=== PATIENT | male | born 1955 | race Caucasian/White ===

== ENCOUNTER → 2017-03-05 | Outpatient (CLI) | payer OTHER ==
[~2017-03-05] MED LIST: ALEVE; IBUPROFEN
== END | disposition home or self-care (01) ==
LOC: C.LABSPEC 15:37
PROVIDERS: ATTEND Internal Medicine
DX: R30.9 Painful micturition, unspecified (principal)

== ENCOUNTER → 2017-03-07 | Outpatient (CLI) | payer OTHER | END | disposition home or self-care (01) | LOC: C.LAB1850 12:37 | PROVIDERS: ATTEND Internal Medicine | DX: R30.9 Painful micturition, unspecified (principal); R35.0 Frequency of micturition ==

== ENCOUNTER → 2017-04-10 | Outpatient (CLI) | payer OTHER ==
[2017-04-10 09:42] LABS: HEMATOCRIT 42.1 % (42-52); MEAN CELL VOLUME 96.3 fL (80-100); MEAN CORPUSCULAR HEMOGLOBIN 32.7 pg (25-34); MEAN PLATELET VOLUME 9.9 fL (7.4-10.4); PLATELET COUNT 247 K/uL (130-400); RED BLOOD COUNT 4.37 M/uL (4.7-6.1); WHITE BLOOD COUNT 5.35 K/uL (4.8-10.8)
[2017-04-10 09:57] LABS: ALT/SGPT 45 U/L (12-78); BLOOD UREA NITROGEN 19 mg/dl (7-18); BUN/CREATININE RATIO 19.9 (10-20); CARBON DIOXIDE 24 mmol/L (21-32); CHLORIDE 113 mmol/L (98-107); CHOLESTEROL 240 mg/dl (0-200); CREATININE 0.97 mg/dl (0.60-1.40); GLUCOSE 96 mg/dl (70-99); POTASSIUM 3.9 mmol/L (3.5-5.1); SODIUM 146 mmol/L (136-145); TRIGLYCERIDES 143 mg/dl (0-150); VERY LOW DENSITY LIPOPROT CALC 29 mg/dl
[2017-04-10 09:59] LABS: CALCIUM 8.4 mg/dl (8.5-10.1)
[2017-04-10 10:01] LABS: ALB/GLOB RATIO 1.2 (0.9-2); ALKALINE PHOSPHATASE 57 U/L (45-117); AST/SGOT 23 U/L (15-37); CHOLESTEROL/HDL RATIO 6.9; HDL CHOLESTEROL 35 mg/dl; LDL CHOLESTEROL CALCULATED 176 mg/dl
== END | disposition home or self-care (01) ==
LOC: C.LAB1850 07:12
PROVIDERS: ATTEND Internal Medicine
DX: Z00.00 Encounter for general adult medical examination without abnormal findings (principal)

== ENCOUNTER → 2018-02-26 | Outpatient (CLI) | payer OTHER ==
[2018-02-26 09:36] LABS: HEMATOCRIT 45.9 % (42-52); MEAN CELL VOLUME 94.6 fL (80-100); MEAN CORPUSCULAR HGB CONC 34.9 g/dl (32-36); MEAN PLATELET VOLUME 9.6 fL (7.4-10.4); PLATELET COUNT 264 K/uL (130-400); RED CELL DISTRIBUTION WIDTH CV 13.7 % (11.5-14.5); WHITE BLOOD COUNT 5.02 K/uL (4.8-10.8)
[2018-02-26 10:09] LABS: ALBUMIN 4.1 gm/dl (3.4-5.0); ALT/SGPT 42 U/L (12-78); AST/SGOT 26 U/L (15-37); BLOOD UREA NITROGEN 14 mg/dl (7-18); CALCIUM 8.8 mg/dl (8.5-10.1); CARBON DIOXIDE 29 mmol/L (21-32); CHOLESTEROL 246 mg/dl (0-200); GLUCOSE 83 mg/dl (70-99); SODIUM 139 mmol/L (136-145)
[2018-02-26 10:20] LABS: ALKALINE PHOSPHATASE 64 U/L (45-117); LDL CHOLESTEROL CALCULATED 176 mg/dl; TOTAL PROTEIN 7.2 gm/dl (6.4-8.2)
== END | disposition home or self-care (01) ==
LOC: C.LAB1850 07:07
PROVIDERS: ATTEND Internal Medicine
DX: Z00.00 Encounter for general adult medical examination without abnormal findings (principal); R53.83 Other fatigue; M25.50 Pain in unspecified joint

== ENCOUNTER 2023-08-13 21:47 | Inpatient (IN) ==
[2023-08-13 22:54] LABS: Basophils # (auto) 0.03 K/uL (0.00-0.20); Basophils % (auto) 0.3 %; Eosinophils # (auto) 0.16 K/uL (0.00-0.50); Eosinophils % (auto) 1.7 %; Hematocrit (blood only) 37.6 % (42.0-52.0); Immature Granulocytes # (auto) 0.08 K/uL (0.01-0.20); Immature Granulocytes % (auto) 0.8 %; Lymphocytes # (auto) 2.06 K/uL (1.20-3.40); Lymphocytes % (auto) 21.7 %; Mean Corpuscular Hemoglobin 31.7 pg (25.0-34.0); Mean Corpuscular Hgb Conc 37.2 g/dL (32.0-36.0); Mean Corpuscular Volume 85.3 fL (80.0-100.0); Mean Platelet Volume 8.6 fL (9.4-12.4); Monocytes # (auto) 1.07 K/uL (0.11-0.59); Monocytes % (auto) 11.3 %; Neutrophils # (auto) 6.08 K/uL (1.40-6.50); Neutrophils % (auto) 64.2 %; Platelet Count 421 K/uL (130-400); RDW Coefficient of Variation 11.5 % (11.5-14.5); RDW Standard Deviation 35.6 fL (36.4-46.3); Red Blood Count 4.41 M/uL (4.70-6.10); White Blood Count 9.48 K/ul (4.8-10.8)
[2023-08-13 23:05] LABS: Appearance Urine Turbid (Clear); Bilirubin Urine 1+ (Negative); Blood Urine 3+ (Negative); Color Urine Red; Glucose Urine UA Negative (Negative); Ketones Urine Trace (Negative); Leukocyte Esterase Urine 3+ (Negative); Nitrite Urine Negative (Negative); Protein Urine 3+ (Negative); Specific Gravity Urine 1.015 (1.000-1.030); Urobilinogen Urine Negative (Negative); pH Urine 8.5 (4.5-7.5)
[2023-08-13 23:48] LABS: Albumin Globulin Ratio 0.9 (0.9-2); Albumin Level 3.6 gm/dl (3.4-5.0); BUN Creatinine Ratio 11.7 (10-20); Bilirubin,Total 0.5 mg/dl (0.2-1.0); Calcium 8.5 mg/dl (8.6-10.3); Creatinine Clr Calc Pharmacy 98.9 ml/min; Est GFR (African American) 108.1 ml/min; Est GFR (Non-African American) 93.2 ml/min; Globulin 3.9 gm/dl (2.5-4.0); Total Protein 7.5 gm/dl (6.0-8.3)
[2023-08-14 00:10] LABS: RBC Urine >30 /hpf (0-4); WBC Urine >30 /hpf (0-5)
[2023-08-14 00:11] LABS: Bacteria Urine 4+ (Negative)
[2023-08-14] MEDS ORDERED: MoRPHine SULFATE 4 MG/ML 1 ML CARP\\VIAL IV STA (00:14)
[2023-08-14] MEDS ORDERED: ONDANSETRON INJ 2 MG/ML 2 ML VIAL IV STA (00:14)
--- NOTE | 2023-08-14 00:18 | Emergency Department Note ---
Impression & Plan Acute hyponatremia ADMIT ED Provider Note HPI: History obtained from patient. The patient is a 68-year-old gentleman who presents emergency department with a chief complaint of lower abdominal discomfort, vomiting, and hematuria. Patient states his symptoms have been worsening over about the past 2 weeks. Patient states he was on a course of Bactrim without any improvement in his lower abdominal discomfort and hematuria. On arrival here to the ED the patient is hemodynamically stable, he is in no acute distress on my initial assessment but states he does have some lower abdominal discomfort. Patient states he has been able to void but he does have a diminished stream. ROS: - Per HPI Differential Diagnosis: Kidney stone, BPH, urinary tract infection, diverticulitis, acute appendicitis, acute colitis, acute cholecystitis, small bowel obstruction, amongst other potential pathologies. *Outpatient medications and allergy history reviewed. 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 Lab work shows no leukocytosis, hemoglobin is normal, platelet count is slightly high at 421, CMP shows a critical low sodium at 112, patient remains asymptomatic from this standpoint, he is mentating clearly, no seizure-like activity has been reported recently. Chloride is also slightly low at 81, otherwise no critical findings are noted. Urinalysis shows 3+ blood, 3+ leukocyte Estrace, there is significant hematuria and pyuria. We will send for culture. Patient was treated prophylactically with Zosyn. In regards to the patient's hyponatremia, he is not symptomatic from the standpoint, will defer to the hospitalist service in regards to potential fluid restriction and further management, and will avoid hypertonic saline at this time given the patient's lack of any neurologic symptoms. CT imaging of the abdomen pelvis shows evidence of diverticulitis flare with fistulous tract between the bowel and the bladder. There is an air-fluid level within the bladder. On my reassessment patient states he is feeling much better following IV morphine and IV Zofran, he was treated prophylactically with IV Zosyn for the findings on urine and CT imaging. I discussed the patient's presentation with on-call hospitalist, Dr. Allen, and the patient was placed for admission in stable condition. Urology and general surgery consultations w ere placed for the patient to be evaluated on a routine basis for the findings on CT imaging. Patient was informed of the all the above, he is in agreement for admission and the patient was placed for admission in stable condition. Consultants/Discussions held with other healthcare providers: -Hospitalist, Dr. Allen -Routine consultations placed for general surgery service and urology service Disposition discussion held by myself with: -Patient Diagnosis: 1. Diverticulitis flare, acute 2. Colovesicular fistula, acute 3. Urinary tract infection, acute 4. Hyponatremia, acute Disposition: Admission Garrick Velasquez DO Emergency Medicine Past Med/Surg History Medical History (Updated 08/14/23 @ 02:54 by Garrick Velasquez DO) Arthralgia of multiple sites BPH (benign prostatic hyperplasia) Symptoms primarily nocturia, weak stream. Treated with tamsulosin Elevated prostate specific antigen (PSA) Erectile dysfunction Managed with sildenafil Heart murmur, systolic Recurrent UTI Surgical History History of back surgery Hx of tonsillectomy Family History Mother Diabetes Alzheimer disease Parkinson disease Sister Myocardial infarction Grandmother Cardiac disorder Cervical cancer Denies family history of Colon cancer Ovarian cancer Prostate cancer Breast cancer Social History Smoking Status: Never smoker Hx Alcohol Use: Yes Hx Substance Use: No Preferred Language: Greek Visual Impairment: No Limitations Hearing Ability: Normal Beliefs That Will Affect Care: None marital status: Current Living Situation: Spouse current occupational status: retired Feels Safe at Home: Yes Childhood Exposure to Second-Hand Smoke: Yes Dental Care, Regularly: Yes Physical Activity Frequency: 1-2 Times per Week Seatbelt Use: always Sunscreen Use: No Allergies Allergies Allergy/AdvReac Type Severity Reaction Status Date / Time No Known Drug Allergies Allergy Unknown Verified 08/14/23 01:47 Home Meds Home Medications Medication Instructions Recorded Confirmed atorvastatin 40 mg tablet 80 mg PO HS 08/14/23 08/14/23 silodosin 8 mg capsule (Rapaflo) 8 mg PO QPM 08/14/23 08/14/23 Previous Rx's Medication Instructions Recorded sildenafil (pulm.hypertension) 20 20 mg PO ONCE PRN sexual activity 05/15/23 mg tablet #30 tabs sulfamethoxazole 800 1 tab PO BID 3 days #6 tabs 08/12/23 mg-trimethoprim 160 mg tablet (Bactrim DS) Results & Data (ED) Vital Signs Vital Signs - 24 hr 08/13/23 21:55 Temperature 36.4 C L Temperature Source Temporal Artery Scan Pulse Rate 100 H Pulse Rhythm Regular Pulse Strength Normal Respiratory Rate 20 Respiratory Effort / Characteristics Non-Labored Spontaneous Respiratory Depth Normal Pulse Oximetry 94 Oxygen Delivery Method Room Air Sepsis Recent Fever Within 48 Hours No Sepsis New/Unexplained Change in Mental Status N/A Sepsis Action Taken by Nursing No Action Required Laboratory Data 08/13/23 22:35 08/13/23 22:35 Lab Results 08/13/23 08/13/23 08/13/23 Range/Units 22:35 22:35 22:35 WBC 9.48 (4.8-10.8) K/ul RBC 4.41 L (4.70-6.10) M/uL Hgb 14.0 (14.0-18.0) g/dl Hct 37.6 L (42.0-52.0) % MCV 85.3 (80.0-100.0) fL MCH 31.7 (25.0-34.0) pg MCHC 37.2 H (32.0-36.0) g/dL RDW Std Deviation 35.6 L (36.4-46.3) fL RDW Coeff of Roopa 11.5 (11.5-14.5) % Plt Count 421 H (130-400) K/uL MPV 8.6 L (9.4-12.4) fL Immature Gran % (Auto) 0.8 % Neut % (Auto) 64.2 % Lymph % (Auto) 21.7 % Blair % (Auto) 11.3 % Eos % (Auto) 1.7 % Baso % (Auto) 0.3 % Neut # (Auto) 6.08 (1.40-6.50) K/uL Lymph # (Auto) 2.06 (1.20-3.40) K/uL Blair # (Auto) 1.07 H (0.11-0.59) K/uL Eos # (Auto) 0.16 (0.00-0.50) K/uL Baso # (Auto) 0.03 (0.00-0.20) K/uL Immature Gran # (Auto) 0.08 (0.01-0.20) K/uL Sodium 112 L* (136-145) mmol/L Potassium 4.0 (3.5-5.1) mmol/L Chloride 82 L (98-107) mmol/L Carbon Dioxide 21 (21-32) mmol/L Anion Gap 9 (3-11) BUN 9 (6-23) mg/dl Creatinine 0.77 (0.6-1.4) mg/dl Est Cr Clr Drug Dosing 98.9 ml/min Est GFR ( Amer) 108.1 ml/min Est GFR (Non-Af Amer) 93.2 ml/min BUN/Creatinine Ratio 11.7 (10-20) Glucose 110 H (70-99(Fasting)) mg/dl Osmolality 234 L* (280-300) mOsm/kg Calcium 8.5 L (8.6-10.3) mg/dl Total Bilirubin 0.5 (0.2-1.0) mg/dl AST 40 H (13-39) U/L ALT 32 (7-52) U/L Alkaline Phosphatase 92 (34-104) U/L Total Protein 7.5 (6.0-8.3) gm/dl Albumin 3.6 (3.4-5.0) gm/dl Globulin 3.9 (2.5-4.0) gm/dl Albumin/Globulin Ratio 0.9 (0.9-2) Urine Color Urine Appearance (Clear) Urine pH (4.5-7.5) Ur Specific [place] (1.000-1.030) Urine Protein (Negative) Urine Glucose (UA) (Negative) Urine Ketones (Negative) Urine Blood (Negative) Urine Nitrite (Negative) Urine Bilirubin (Negative) Urine Urobilinogen (Negative) Ur Leukocyte Esterase (Negative) Urine RBC (0-4) /hpf Urine WBC (0-5) /hpf Ur Epithelial Cells (0-5) /lpf Urine Bacteria (Negative) 08/13/23 08/14/23 Range/Units 22:40 00:51 WBC (4.8-10.8) K/ul RBC (4.70-6.10) M/uL Hgb (14.0-18.0) g/dl Hct (42.0-52.0) % MCV (80.0-100.0) fL MCH (25.0-34.0) pg MCHC (32.0-36.0) g/dL RDW Std Deviation (36.4-46.3) fL RDW Coeff of Roopa (11.5-14.5) % Plt Count (130-400) K/uL MPV (9.4-12.4) fL Immature Gran % (Auto) % Neut % (Auto) % Lymph % (Auto) % Blair % (Auto) % Eos % (Auto) % Baso % (Auto) % Neut # (Auto) (1.40-6.50) K/uL Lymph # (Auto) (1.20-3.40) K/uL Blair # (Auto) (0.11-0.59) K/uL Eos # (Auto) (0.00-0.50) K/uL Baso # (Auto) (0.00-0.20) K/uL Immature Gran # (Auto) (0.01-0.20) K/uL Sodium 111 L* (136-145) mmol/L Potassium 3.9 (3.5-5.1) mmol/L Chloride 83 L (98-107) mmol/L Carbon Dioxide 22 (21-32) mmol/L Anion Gap 6 (3-11) BUN 10 (6-23) mg/dl Creatinine 0.82 (0.6-1.4) mg/dl Est Cr Clr Drug Dosing 92.9 ml/min Est GFR ( Amer) 105.3 ml/min Est GFR (Non-Af Amer) 90.9 ml/min BUN/Creatinine Ratio 12.2 (10-20) Glucose 110 H (70-99(Fasting)) mg/dl Osmolality (280-300) mOsm/kg Calcium 8.1 L (8.6-10.3) mg/dl Total Bilirubin (0.2-1.0) mg/dl AST (13-39) U/L ALT (7-52) U/L Alkaline Phosphatase (34-104) U/L Total Protein (6.0-8.3) gm/dl Albumin (3.4-5.0) gm/dl Globulin (2.5-4.0) gm/dl Albumin/Globulin Ratio (0.9-2) Urine Color Red Urine Appearance Turbid A (Clear) Urine pH 8.5 H (4.5-7.5) Ur Specific [place] 1.015 (1.000-1.030) Urine Protein 3+ H (Negative) Urine Glucose (UA) Negative (Negative) Urine Ketones Trace H (Negative) Urine Blood 3+ H (Negative) Urine Nitrite Negative (Negative) Urine Bilirubin 1+ H (Negative) Urine Urobilinogen Negative (Negative) Ur Leukocyte Esterase 3+ H (Negative) Urine RBC >30 H (0-4) /hpf Urine WBC >30 H (0-5) /hpf Ur Epithelial Cells 5-10 H (0-5) /lpf Urine Bacteria 4+ H (Negative) Administered Medications Discontinued Medications Morphine Sulfate (Morphine Sulfate 4 Mg/Ml 1 Ml Carp\Vial) 4 mg IV NOW STA Stop: 08/14/23 00:15 Last Admin: 08/14/23 00:50 Dose: 4 mg Documented By: LASHANDA Ondansetron HCl (Ondansetron Inj 2 Mg/Ml 2 Ml Vial) 4 mg IV NOW STA Stop: 08/14/23 00:15 Last Admin: 08/14/23 00:49 Dose: 4 mg Documented By: LASHANDA Imaging Data Radiologist's Impression: Abdomen/Pelvis CT 08/14/23 00:14 Exam(s): CT ABDOMEN + PELVIS Without Contrast EXAM: CT Abdomen and Pelvis Without Intravenous Contrast CLINICAL HISTORY: Reason for exam: lower abd pain. TECHNIQUE: Axial computed tomography images of the abdomen and pelvis without intravenous contrast. Automated exposure control was utilized for the study. A dose lowering technique was utilized adhering to the principles of ALARA. COMPARISON: No relevant prior studies available. FINDINGS: Lung bases: Unremarkable. No mass. No consolidation. ABDOMEN: Liver: Unremarkable. Gallbladder and bile ducts: Unremarkable. No calcified stones. No ductal dilation. Pancreas: Unremarkable. No ductal dilation. Spleen: Unremarkable. No splenomegaly. Adrenals: Unremarkable. No mass. Kidneys and ureters: Moderate left hydroureteronephrosis extrinsic compression from the above-mentioned infectious colitis. Stomach and bowel: See above. PELVIS: Appendix: No findings to suggest acute appendicitis. Bladder: Inflammatory changes and wall thickening involving a short segment of sigmoid colon left hemiabdomen. This is inseparable from the adjacent urinary bladder wall. No pericolonic fluid collections present on this exam. No free air. Moderate left-sided hydronephrosis. Urinary bladder is markedly distended. There is also air seen within the urinary bladder. No stones. Reproductive: Unremarkable as visualized. ABDOMEN and PELVIS: Intraperitoneal space: See above. Bones/joints: No acute fracture. No dislocation. Soft tissues: Unremarkable. Vasculature: Unremarkable. No abdominal aortic aneurysm. Lymph nodes: Unremarkable. No enlarged lymph nodes. IMPRESSION: Diverticulitis involving the sigmoid colon. There is likely a fistulous connection between the inflamed loop of sigmoid colon in the left lower quadrant and the urinary bladder which contains air. Electronically signed by: Carson Osullivan MD 08/14/23 01:25 AM Discharge Plan Visit Data Chief Complaint: Hematuria Stated Complaint: HEMATURIA, PELVIC AND BACK PAIN ED Provider: Garrick Velasquez Discharge Problem: Acute hyponatremia Forms Stand Alone Forms: [facility] [employer] Prescriptions Prescriptions: No Action sildenafil (pulm.hypertension) 20 mg tablet 20 mg PO ONCE MDD 100 mg PRN (Reason: sexual activity) Qty: 30 5RF Rx Instructions: Take 1-5 tablets prn prior to sexual activity. Do not exceed 100mg in 24 hours. sulfamethoxazole-trimethoprim [Bactrim DS] 800-160 mg tablet 1 tab PO BID 3 Days Qty: 6 0RF atorvastatin 40 mg tablet 80 mg PO HS silodosin [Rapaflo] 8 mg capsule 8 mg PO QPM Rx Instructions: must administer with a meal/food Referrals Referrals: Rich Rg MD [Primary Care Provider] -
--- NOTE | 2023-08-14 01:25 | CT Scan Report ---
Exam(s): CT ABDOMEN + PELVIS Without Contrast EXAM: CT Abdomen and Pelvis Without Intravenous Contrast CLINICAL HISTORY: Reason for exam: lower abd pain. TECHNIQUE: Axial computed tomography images of the abdomen and pelvis without intravenous contrast. Automated exposure control was utilized for the study. A dose lowering technique was utilized adhering to the principles of ALARA. COMPARISON: No relevant prior studies available. FINDINGS: Lung bases: Unremarkable. No mass. No consolidation. ABDOMEN: Liver: Unremarkable. Gallbladder and bile ducts: Unremarkable. No calcified stones. No ductal dilation. Pancreas: Unremarkable. No ductal dilation. Spleen: Unremarkable. No splenomegaly. Adrenals: Unremarkable. No mass. Kidneys and ureters: Moderate left hydroureteronephrosis extrinsic compression from the above-mentioned infectious colitis. Stomach and bowel: See above. PELVIS: Appendix: No findings to suggest acute appendicitis. Bladder: Inflammatory changes and wall thickening involving a short segment of sigmoid colon left hemiabdomen. This is inseparable from the adjacent urinary bladder wall. No pericolonic fluid collections present on this exam. No free air. Moderate left-sided hydronephrosis. Urinary bladder is markedly distended. There is also air seen within the urinary bladder. No stones. Reproductive: Unremarkable as visualized. ABDOMEN and PELVIS: Intraperitoneal space: See above. Bones/joints: No acute fracture. No dislocation. Soft tissues: Unremarkable. Vasculature: Unremarkable. No abdominal aortic aneurysm. Lymph nodes: Unremarkable. No enlarged lymph nodes. IMPRESSION: Diverticulitis involving the sigmoid colon. There is likely a fistulous connection between the inflamed loop of sigmoid colon in the left lower quadrant and the urinary bladder which contains air. Electronically signed by: Carson Osullivan MD 08/14/23 01:25 AM
[2023-08-14] MEDS ORDERED: PIPERACILLIN/TAZOBACTAM 4.5 GM/100 ML BAG IV ONE (01:33)
[2023-08-14] MEDS ORDERED: cefTRIAXone SODIUM 2,000 MG/50 ML BAG IV STA (01:33)
[2023-08-14 01:43] LABS: BUN Creatinine Ratio 12.2 (10-20); Calcium 8.1 mg/dl (8.6-10.3); Creatinine Clr Calc Pharmacy 92.9 ml/min; Est GFR (African American) 105.3 ml/min; Est GFR (Non-African American) 90.9 ml/min; Potassium 3.9 mmol/L (3.5-5.1)
--- NOTE | 2023-08-14 02:22 | History & Physical Report ---
Date of Service August 14, 2023 Assessment & Plan (1) Acute hyponatremia: Plan: Severe hyponatremia with Om=912. No history of prior. Last Na level on record from 05/21/23, normal at 139. Patient appears to be euvolemic on exam. Asymptomatic. Possibly secondary to Bactrim use - renal salt wasting and SIADH can result from use of Bactrim - often seen several days into antibiotic course. -Admit to PCU -Check serum and urine osm -Check urine Na -Check TSH and random Cortisol -Monitor BMP q 4 hours -Fluid restriction 1200mL/daily -Monitor UOP -Straight cath as needed (2) Diverticulitis: Plan: CT findings as above. Concern for acute diverticulitis, possible enterovesicular fistula. Abdomen is tender, soft and non-distended. 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 Patient with recurrent UTIs -Follow culture -Continue Zosyn -Urology consultation appreciated History of Present Illness Chief Complaint: Pelvic pain, hyponatremia Primary Care Provider: Rich Rg MD Mr. Polanco is a pleasant 68yo male with history of BPH and HLP presenting with pelvic discomfort. Patient reports that on 08/05/23 he developed symptoms concerning for a UTI - dysuria, increased frequency and urgency as well as pelvic discomfort. He notified his Urologist and a urine study was collected. He was started on TMP-SMX 800mg/160mg po BID on 08/09/23 for a 7 day course. He has been taking this medication as prescribed - last dose was 08/13/23 AM. He also reports that he has been trying to increase his water intake - drinks 6-8 glasses of water daily. He has had occasional chills as well as ongoing pelvic/mid-abdominal pain, episodes of nausea with vomiting and some diarrhea last night. He denies fever. Has had decreased urine output which is dark in color. He also reports that it is more difficult than usual to start his urinary stream. No additional complaints at this time. Specifically denies seizure, imbalance, confusion, visual changes. No prior history of hyponatremia or diverticulosis/diverticulitis known to the patient. Allergies Allergy/AdvReac Type Severity Reaction Status Date / Time No Known Drug Allergies Allergy Unknown Verified 08/14/23 01:47 Home Medications Medication Instructions Recorded Confirmed Type sildenafil (pulm.hypertension) 20 20 mg PO ONCE PRN sexual activity 05/15/23 08/14/23 Rx mg tablet #30 tabs sulfamethoxazole 800 1 tab PO BID 3 days #6 tabs 08/12/23 08/14/23 Rx mg-trimethoprim 160 mg tablet (Bactrim DS) atorvastatin 40 mg tablet 80 mg PO HS 08/14/23 08/14/23 History silodosin 8 mg capsule (Rapaflo) 8 mg PO QPM 08/14/23 08/14/23 History Past Med/Surg History Medical History (Updated 08/14/23 @ 04:55 by Lexi Allen DO) Arthralgia of multiple sites BPH (benign prostatic hyperplasia) Symptoms primarily nocturia, weak stream. Treated with tamsulosin Elevated prostate specific antigen (PSA) Erectile dysfunction Managed with sildenafil Heart murmur, systolic Recurrent UTI Surgical History History of back surgery Hx of tonsillectomy Family History Mother Diabetes Alzheimer disease Parkinson disease Sister Myocardial infarction Grandmother Cardiac disorder Cervical cancer Denies family history of Colon cancer Ovarian cancer Prostate cancer Breast cancer Social History Smoking Status: Never smoker Hx Alcohol Use: Yes Hx Substance Use: No Preferred Language: Persian Visual Impairment: No Limitations Hearing Ability: Normal Beliefs That Will Affect Care: None marital status: Current Living Situation: Spouse current occupational status: retired Feels Safe at Home: Yes Childhood Exposure to Second-Hand Smoke: Yes Dental Care, Regularly: Yes Physical Activity Frequency: 1-2 Times per Week Seatbelt Use: always Sunscreen Use: No Review of Systems Review of Systems: All systems reviewed & are unremarkable except as noted in HPI & below Physical Exam Physical Exam: General: patient resting comfortably, NAD, non-toxic in appearance, AA&O x 4 Skin: warm, dry, intact, no rashes or lesions HEENT: NC/AT, PERRL, EOMI, anicteric sclera, conjunctiva without injection, ext ernal ear normal to inspection and nontender, nares patent, moist mucus membranes, dentition intact, no oropharyngeal lesions, neck supple, trachea midline, no LAD, no thyromegaly, no JVD Heart: +S1/S2, regular, no m/r/g Lungs: equal air entry bilaterally, no rales/rhonchi/wheezes Abd: +BS, soft, tender in lower abdomen with no rebound/guarding or peritonitis, no masses/organomegaly/ascites Ext: warm, 2+ pulses in UE/LE bilaterally, no clubbing/cyanosis or edema Neuro: nonfocal, patient AA&O x 4, speech intact, no facial droop, moving all extremities on command with equal strength 5/5 Results & Data Results & Data Vital Signs (Past 12 Hours) Vital Signs Temp Pulse Resp Pulse Ox O2 Del Method 08/13/23 21:55 36.4 C L 100 H 20 94 Room Air Laboratory Results Laboratory Results WBC 9.48 K/ul (4.8-10.8) 08/13/23 22:35 RBC 4.41 M/uL (4.70-6.10) L 08/13/23 22:35 Hgb 14.0 g/dl (14.0-18.0) 08/13/23 22:35 Hct 37.6 % (42.0-52.0) L 08/13/23 22:35 MCV 85.3 fL (80.0-100.0) 08/13/23 22:35 MCH 31.7 pg (25.0-34.0) 08/13/23 22:35 MCHC 37.2 g/dL (32.0-36.0) H 08/13/23 22:35 RDW Std Deviation 35.6 fL (36.4-46.3) L 08/13/23 22:35 RDW Coeff of Roopa 11.5 % (11.5-14.5) 08/13/23 22:35 Plt Count 421 K/uL (130-400) H 08/13/23 22:35 MPV 8.6 fL (9.4-12.4) L 08/13/23 22:35 Immature Gran % (Auto) 0.8 % 08/13/23 22:35 Neut % (Auto) 64.2 % 08/13/23 22:35 Lymph % (Auto) 21.7 % 08/13/23 22:35 [place] % (Auto) 11.3 % 08/13/23 22:35 Eos % (Auto) 1.7 % 08/13/23 22:35 Baso % (Auto) 0.3 % 08/13/23 22:35 Neut # (Auto) 6.08 K/uL (1.40-6.50) 08/13/23 22:35 Lymph # (Auto) 2.06 K/uL (1.20-3.40) 08/13/23 22:35 [place] # (Auto) 1.07 K/uL (0.11-0.59) H 08/13/23 22:35 Eos # (Auto) 0.16 K/uL (0.00-0.50) 08/13/23 22:35 Baso # (Auto) 0.03 K/uL (0.00-0.20) 08/13/23 22:35 Immature Gran # (Auto) 0.08 K/uL (0.01-0.20) 08/13/23 22:35 Sodium 111 mmol/L (136-145) L* 08/14/23 00:51 Potassium 3.9 mmol/L (3.5-5.1) 08/14/23 00:51 Chloride 83 mmol/L (98-107) L 08/14/23 00:51 Carbon Dioxide 22 mmol/L (21-32) 08/14/23 00:51 Anion Gap 6 (3-11) 08/14/23 00:51 BUN 10 mg/dl (6-23) 08/14/23 00:51 Creatinine 0.82 mg/dl (0.6-1.4) 08/14/23 00:51 Est Cr Clr Drug Dosing 92.9 ml/min 08/14/23 00:51 Est GFR ( Amer) 105.3 ml/min 08/14/23 00:51 Est GFR (Non-Af Amer) 90.9 ml/min 08/14/23 00:51 BUN/Creatinine Ratio 12.2 (10-20) 08/14/23 00:51 Glucose 110 mg/dl (70-99(Fasting)) H 08/14/23 00:51 Osmolality 234 mOsm/kg (280-300) L* 08/13/23 22:35 Calcium 8.1 mg/dl (8.6-10.3) L 08/14/23 00:51 Total Bilirubin 0.5 mg/dl (0.2-1.0) 08/13/23 22:35 AST 40 U/L (13-39) H 08/13/23 22:35 ALT 32 U/L (7-52) 08/13/23 22:35 Alkaline Phosphatase 92 U/L (34-104) 08/13/23 22:35 Total Protein 7.5 gm/dl (6.0-8.3) 08/13/23 22:35 Albumin 3.6 gm/dl (3.4-5.0) 08/13/23 22:35 Globulin 3.9 gm/dl (2.5-4.0) 08/13/23 22:35 Albumin/Globulin Ratio 0.9 (0.9-2) 08/13/23 22:35 TSH 0.896 uIu/ml (0.300-4.500) 08/14/23 00:51 Random Cortisol 10.80 mcg/dl 08/14/23 02:12 Urine Color Red 08/13/23 22:40 Urine Appearance Turbid (Clear) A 08/13/23 22:40 Urine pH 8.5 (4.5-7.5) H 08/13/23 22:40 Ur Specific [place] 1.015 (1.000-1.030) 08/13/23 22:40 Urine Protein 3+ (Negative) H 08/13/23 22:40 Urine Glucose (UA) Negative (Negative) 08/13/23 22:40 Urine Ketones Trace (Negative) H 08/13/23 22:40 Urine Blood 3+ (Negative) H 08/13/23 22:40 Urine Nitrite Negative (Negative) 08/13/23 22:40 Urine Bilirubin 1+ (Negative) H 08/13/23 22:40 Urine Urobilinogen Negative (Negative) 08/13/23 22:40 Ur Leukocyte Esterase 3+ (Negative) H 08/13/23 22:40 Urine RBC >30 /hpf (0-4) H 08/13/23 22:40 Urine WBC >30 /hpf (0-5) H 08/13/23 22:40 Ur Epithelial Cells 5-10 /lpf (0-5) H 08/13/23 22:40 Urine Bacteria 4+ (Negative) H 08/13/23 22:40 Impressions Abdomen/Pelvis CT 08/14/23 00:14 Exam(s): CT ABDOMEN + PELVIS Without Contrast EXAM: CT Abdomen and Pelvis Without Intravenous Contrast CLINICAL HISTORY: Reason for exam: lower abd pain. TECHNIQUE: Axial computed tomography images of the abdomen and pelvis without intravenous contrast. Automated exposure control was utilized for the study. A dose lowering technique was utilized adhering to the principles of ALARA. COMPARISON: No relevant prior studies available. FINDINGS: Lung bases: Unremarkable. No mass. No consolidation. ABDOMEN: Liver: Unremarkable. Gallbladder and bile ducts: Unremarkable. No calcified stones. No ductal dilation. Pancreas: Unremarkable. No ductal dilation. Spleen: Unremarkable. No splenomegaly. Adrenals: Unremarkable. No mass. Kidneys and ureters: Moderate left hydroureteronephrosis extrinsic compression from the above-mentioned infectious colitis. Stomach and bowel: See above. PELVIS: Appendix: No findings to suggest acute appendicitis. Bladder: Inflammatory changes and wall thickening involving a short segment of sigmoid colon left hemiabdomen. This is inseparable from the adjacent urinary bladder wall. No pericolonic fluid collections present on this exam. No free air. Moderate left-sided hydronephrosis. Urinary bladder is markedly distended. There is also air seen within the urinary bladder. No stones. Reproductive: Unremarkable as visualized. ABDOMEN and PELVIS: Intraperitoneal space: See above. Bones/joints: No acute fracture. No dislocation. Soft tissues: Unremarkable. Vasculature: Unremarkable. No abdominal aortic aneurysm. Lymph nodes: Unremarkable. No enlarged lymph nodes. IMPRESSION: Diverticulitis involving the sigmoid colon. There is likely a fistulous connection between the inflamed loop of sigmoid colon in the left lower quadrant and the urinary bladder which contains air. Electronically signed by: Carson Osullivan MD 08/14/23 01:25 AM PG Care Time/CCT Total # of Minutes Spent Total Time Spent with Patient: Total time spent is greater than 50% in coordination of care (as documented) at patient's floor/unit and/or counseling patient: Coding Level of Care Code 59473 INT INP/OBS CARE 2/55MIN Diagnoses Acute hyponatremia E87.1 Diverticulitis K57.92 UTI (urinary tract infection) N39.0
[2023-08-14 02:57] LABS: Thyroid Stimulating Hormone 0.896 uIu/ml (0.300-4.500)
[2023-08-14] MEDS ORDERED: ACETAMINOPHEN 325 MG TAB PO PRN (03:58)
[2023-08-14] MEDS: MoRPHine SULFATE 4 MG/ML 1 ML CARP\\VIAL IV PRN ×3 (05:06→23:44)
[2023-08-14 05:34] LABS: BUN Creatinine Ratio 13.3 (10-20); Creatinine Clr Calc Pharmacy 101.5 ml/min; Est GFR (African American) 109.2 ml/min; Est GFR (Non-African American) 94.3 ml/min; Potassium 3.9 mmol/L (3.5-5.1)
[2023-08-14] MEDS: ONDANSETRON INJ 2 MG/ML 2 ML VIAL IV PRN ×3 (08:17→20:10)
--- NOTE | 2023-08-14 08:18 | Hospitalist Progress Note ---
Date of Service August 14, 2023 Assessment & Plan (1) Acute hyponatremia: (2) Diverticulitis: (3) UTI (urinary tract infection): Plan #Acute hyponatremia: - Initial Na 112, fluctuated throughout the day between 111 and 113, - Serum osmolality 234 - Likely secondary to Bactrim, possibly exacerbated by excess water intake - Start 3% hypertonic saline infusion at 22ml/hour to correct sodium - Start desmopressin 1mcg Q6h to prevent excess water diuresis and to regulate rate of sodium increase - Fluid restriction 1200mL - continue serial BMP Q4H and titrate hypertonic saline infusion rate accordingly to avoid overcorrection. #Diverticulitis: - CT significant for sigmoid diverticulitis with possible colovesicular fistula - General surgery consulted, no immediate need for surgical intervention, continue to appreciate recs - Continue IV Zosyn - Morphine as needed for pain - Zofran as needed for nausea #UTI: - CT with possible colovesicular fistula, air noted in bladder - Continue IV Zosyn - Urology consulted, no immediate need for intervention, continue conservative management, continue to appreciate recs VTE ppx: Lovenox Diet: Clear liquids Admission and Anticipated Discharge Date Admission Date: August 14, 2023 Supervising Physician Co-Signing Physician Notes Resident Physician Supervision Note: I independently interviewed and examined the patient and verified the irizarry history and physical, reviewed labs and image studies and agree with resident findings and care plan. Subjective Mr. Polanco is a 68yo male with history of BPH and HLP presenting with pelvic discomfort. Patient evaluated at bedside, appears to be in no apparent distress but states that he has ongoing lower abdominal/suprapubic pain and has dark, "tea-colored" urine. Denies nausea, vomiting. Last bowel movement yesterday was loose, none since but passing gas. Denies fever or chills. Denies air in urine, denies passage of stool via urethra. Review of Systems Review of Systems: All systems reviewed & are unremarkable except as noted in HPI & below Physical Exam Constitutional: WD/WN, vitals as above no acute distress Respiratory: normal respiratory effort, lungs clear to auscultation Cardiovascular: RRR, no murmur, no edema Gastrointestinal (Abdomen): Abdomen tender to palpation in LLQ and RLQ as well as over suprapubic region. Minimal guarding, no rigidity. Bowel sounds intact. Skin: no rashes, warm and dry Psychiatric: A+Ox3, euthymic affect Results & Data Results & Data Vital Signs (Past 12 Hours) Vital Signs Temp Pulse Resp BP BP Pulse Ox O2 Del Method 08/14/23 08:14 18 128/82 96 Room Air 08/14/23 06:58 74 08/14/23 06:30 79 24 113/72 93 08/14/23 06:00 90 08/14/23 04:30 190/131 H 91 08/14/23 04:01 132/88 93 08/14/23 03:00 71 16 147/87 H 97 08/13/23 21:55 36.4 C L 100 H 20 94 Room Air Laboratory Results Abnormal lab results 08/13/23 08/13/23 08/13/23 Range/Units 22:35 22:35 22:35 RBC 4.41 L (4.70-6.10) M/uL Hct 37.6 L (42.0-52.0) % MCHC 37.2 H (32.0-36.0) g/dL RDW Std Deviation 35.6 L (36.4-46.3) fL Plt Count 421 H (130-400) K/uL MPV 8.6 L (9.4-12.4) fL [place] # (Auto) 1.07 H (0.11-0.59) K/uL Sodium 112 L* (136-145) mmol/L Chloride 82 L (98-107) mmol/L Glucose 110 H (70-99(Fasting)) mg/dl Osmolality 234 L* (280-300) mOsm/kg Calcium 8.5 L (8.6-10.3) mg/dl AST 40 H (13-39) U/L Urine Appearance (Clear) Urine pH (4.5-7.5) Urine Protein (Negative) Urine Ketones (Negative) Urine Blood (Negative) Urine Bilirubin (Negative) Ur Leukocyte Esterase (Negative) Urine RBC (0-4) /hpf Urine WBC (0-5) /hpf Ur Epithelial Cells (0-5) /lpf Urine Bacteria (Negative) 08/13/23 08/14/23 08/14/23 Range/Units 22:40 00:51 02:12 RBC (4.70-6.10) M/uL Hct (42.0-52.0) % MCHC (32.0-36.0) g/dL RDW Std Deviation (36.4-46.3) fL Plt Count (130-400) K/uL MPV (9.4-12.4) fL [place] # (Auto) (0.11-0.59) K/uL Sodium 111 L* 112 L* (136-145) mmol/L Chloride 83 L 83 L (98-107) mmol/L Glucose 110 H (70-99(Fasting)) mg/dl Osmolality (280-300) mOsm/kg Calcium 8.1 L 8.0 L (8.6-10.3) mg/dl AST (13-39) U/L Urine Appearance Turbid A (Clear) Urine pH 8.5 H (4.5-7.5) Urine Protein 3+ H (Negative) Urine Ketones Trace H (Negative) Urine Blood 3+ H (Negative) Urine Bilirubin 1+ H (Negative) Ur Leukocyte Esterase 3+ H (Negative) Urine RBC >30 H (0-4) /hpf Urine WBC >30 H (0-5) /hpf Ur Epithelial Cells 5-10 H (0-5) /lpf Urine Bacteria 4+ H (Negative) 08/14/23 08/14/23 08/14/23 Range/Units 07:56 11:42 15:40 RBC (4.70-6.10) M/uL Hct (42.0-52.0) % MCHC (32.0-36.0) g/dL RDW Std Deviation (36.4-46.3) fL Plt Count (130-400) K/uL MPV (9.4-12.4) fL [place] # (Auto) (0.11-0.59) K/uL Sodium 113 L* 111 L* 113 L* (136-145) mmol/L Chloride 84 L 83 L 83 L (98-107) mmol/L Glucose 122 H 115 H (70-99(Fasting)) mg/dl Osmolality (280-300) mOsm/kg Calcium 7.8 L 7.9 L 7.9 L (8.6-10.3) mg/dl AST (13-39) U/L Urine Appearance (Clear) Urine pH (4.5-7.5) Urine Protein (Negative) Urine Ketones (Negative) Urine Blood (Negative) Urine Bilirubin (Negative) Ur Leukocyte Esterase (Negative) Urine RBC (0-4) /hpf Urine WBC (0-5) /hpf Ur Epithelial Cells (0-5) /lpf Urine Bacteria (Negative) Diagnostic Findings Abdomen/Pelvis CT 08/14/23 00:14 Exam(s): CT ABDOMEN + PELVIS Without Contrast EXAM: CT Abdomen and Pelvis Without Intravenous Contrast CLINICAL HISTORY: Reason for exam: lower abd pain. TECHNIQUE: Axial computed tomography images of the abdomen and pelvis without intravenous contrast. Automated exposure control was utilized for the study. A dose lowering technique was utilized adhering to the principles of ALARA. COMPARISON: No relevant prior studies available. FINDINGS: Lung bases: Unremarkable. No mass. No consolidation. ABDOMEN: Liver: Unremarkable. Gallbladder and bile ducts: Unremarkable. No calcified stones. No ductal dilation. Pancreas: Unremarkable. No ductal dilation. Spleen: Unremarkable. No splenomegaly. Adrenals: Unremarkable. No mass. Kidneys and ureters: Moderate left hydroureteronephrosis extrinsic compression from the above-mentioned infectious colitis. Stomach and bowel: See above. PELVIS: Appendix: No findings to suggest acute appendicitis. Bladder: Inflammatory changes and wall thickening involving a short segment of sigmoid colon left hemiabdomen. This is inseparable from the adjacent urinary bladder wall. No pericolonic fluid collections present on this exam. No free air. Moderate left-sided hydronephrosis. Urinary bladder is markedly distended. There is also air seen within the urinary bladder. No stones. Reproductive: Unremarkable as visualized. ABDOMEN and PELVIS: Intraperitoneal space: See above. Bones/joints: No acute fracture. No dislocation. Soft tissues: Unremarkable. Vasculature: Unremarkable. No abdominal aortic aneurysm. Lymph nodes: Unremarkable. No enlarged lymph nodes. IMPRESSION: Diverticulitis involving the sigmoid colon. There is likely a fistulous connection between the inflamed loop of sigmoid colon in the left lower quadrant and the urinary bladder which contains air. Electronically signed by: Carson Osullivan MD 08/14/23 01:25 AM Resident Activity Tracking Resident Involvement: Resident Care Provided Care Provided: [facility]
--- NOTE | 2023-08-14 08:40 | Urology Consultation ---
Date of Consultation August 14, 2023 Assessment & Plan (1) UTI (urinary tract infection): (2) Diverticulitis: Plan 68yo/M admitted to medicine service with hyponatremia, UTI, diverticulitis. CT abdomen pelvis notable for diverticulitis involving the sigmoid colon and likely a fistulous connection between the inflamed loop of sigmoid colon in the left lower quadrant and the urinary bladder which contains air. Urology consulted for colovesical fistula. Afebrile and hemodynamically stable. Labs reviewed-no leukocytosis, normal renal function. Urine and blood cultures are pending. Urine culture from 08/08 grew E. coli and Proteus, was on oral Bactrim as an outpatient. Voiding spontaneously, continue to monitor. No acute intervention warranted. Continue antibiotics and tailor as culture data becomes available. Recommend bladder scan after next void and as needed to monitor for retention. If patient found to be in urinary retention, recommend Rawls catheter placement. Continue supportive care and management per primary team. We reviewed his CT findings in detail. Discussed the risk of recurrent UTI with a fistula. We discussed possible further work-up with outpatient cystoscopy however, he will likely need work-up with general or colorectal surgery for management of the colovesical fistula. Urology will follow. Plan of care reviewed with Dr. Salas, on-call urologist. Supervising Physician Co-Signing Physician Notes Discussed patient with KEISHA. Agree with plan. 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 Stable, no acute urologic intervention necessary. History of Present Illness Attending Physician: Meli Rey MD History of Present Illness 68 year old male with history of BPH who presented to the ED with abdominal and pelvic pain. He was recently diagnosed with an E.coli and Proteus UTI and was on DS Bactrim for treatment. He was taking the medication as prescribed but had worsening pelvic/abdominal pain with an episode of nausea and vomiting which prompted his arrival in the ED. On arrival, he was afebrile and hemodynamically stable. Labs notable for severe hyponatremia with Na 111, no leukocytosis, and normal renal function. Urinalysis with 3+blood, 3+LE, 4+bacteria, negative nitrite. Urine and blood cultures collected and pending. Started on IV Zosyn. CT abd pelvis notable for diverticulitis involving the sigmoid colon. There is likely a fistulous connection between the inflamed loop of sigmoid colon in the left lower quadrant and the urinary bladder which contains air. Patient examined at bedside this AM. Awake, resting bed on arrival. No acute distress. Reports an improvement in pain since arrival. Denies fevers, chills, nausea, vomiting at present. He did have some breakfast but reports a decreased appetite. Voiding without issue. Feels he is emptying his bladder well. Denies hematuria. Patient is well-known to the urology office, follows with Dr. Hudson. History of BPH and elevated PSA. Allergies Allergy/AdvReac Type Severity Reaction Status Date / Time No Known Drug Allergies Allergy Unknown Verified 08/14/23 01:47 Home Medications Medication Instructions Recorded Confirmed Type sildenafil (pulm.hypertension) 20 20 mg PO ONCE PRN sexual activity 05/15/23 08/14/23 Rx mg tablet #30 tabs sulfamethoxazole 800 1 tab PO BID 3 days #6 tabs 08/12/23 08/14/23 Rx mg-trimethoprim 160 mg tablet (Bactrim DS) atorvastatin 40 mg tablet 80 mg PO HS 08/14/23 08/14/23 History silodosin 8 mg capsule (Rapaflo) 8 mg PO QPM 08/14/23 08/14/23 History Patient History Medical History Arthralgia of multiple sites BPH (benign prostatic hyperplasia) Symptoms primarily nocturia, weak stream. Treated with tamsulosin Elevated prostate specific antigen (PSA) Erectile dysfunction Managed with sildenafil Heart murmur, systolic Recurrent UTI Surgical History History of back surgery Hx of tonsillectomy Family History Mother Diabetes Alzheimer disease Parkinson disease Sister Myocardial infarction Grandmother Cardiac disorder Cervical cancer Denies family history of Colon cancer Ovarian cancer Prostate cancer Breast cancer Social History Smoking Status: Never smoker Hx Alcohol Use: Yes Alcohol type: beer Hx Substance Use: No Preferred Language: Hungarian Communication Ability: Effective Visual Impairment: No Limitations Hearing Ability: Normal Powdered Sugar Supervisor Required: No Beliefs That Will Affect Care: None marital status: Current Living Situation: Spouse current occupational status: retired Feels Safe at Home: Yes Childhood Exposure to Second-Hand Smoke: Yes Dental Care, Regularly: Yes Physical Activity Frequency: 1-2 Times per Week Seatbelt Use: always Sunscreen Use: No Assistive Devices: None Review of Systems Review of Systems: All systems reviewed & are unremarkable except as noted in HPI & below Physical Exam Constitutional: well developed and well nourished; no acute distress Neck: normal visual inspection Respiratory: normal respiratory effort; no respiratory distress and no labored breathing Musculoskeletal: Head/Neck/Chest: normocephalic Skin: No visible rashes or lesions to exposed skin areas Neurologic: moves all extremities and awake Psychiatric: A+Ox3, euthymic affect Results & Data Vital Signs (Past 12 Hours) Vital Signs Temp Pulse Resp BP BP Pulse Ox O2 Del Method 08/14/23 08:14 18 128/82 96 Room Air 08/14/23 06:58 74 08/14/23 06:30 79 24 113/72 93 08/14/23 06:00 90 08/14/23 04:30 190/131 H 91 08/14/23 04:01 132/88 93 08/14/23 03:00 71 16 147/87 H 97 08/13/23 21:55 36.4 C L 100 H 20 94 Room Air PG Care Time/CCT Total # of Minutes Spent Total Time Spent with Patient: Total time spent is greater than 50% in coordination of care (as documented) at patient's floor/unit and/or counseling patient: Coding Level of Care Code 58912 INT INP/OBS CARE 2/55MIN Diagnoses UTI (urinary tract infection) N39.0 Diverticulitis K57.92
--- NOTE | 2023-08-14 08:54 | Surgery Consultation ---
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 There is no abscess or free perforation. There is no urgent surgical need at this time. He has a significant number of electrolyte imbalances and abnormalities, and is being admitted to the medicine service for resuscitation, electrolyte repletion, IV antibiotics for the UTI. We will follow along for now. He has not had a colonoscopy in over 10 years. He will most likely need a colonoscopy in the short-term. Again, no immediate surgical intervention is required at this time. We will continue to follow along with him in the hospital. History of Present Illness Reason for Consultation: Diverticulitis with possible colovesicular fistula Requesting Physician: Meli Rey MD Attending Physician: Meli Rey MD History of Present Illness 68-year-old gentleman presents with a weeklong history of abdominal pain and cloudy urine. He has had UTI in the past. He sees Dr. Hudson for elevated PSA. He denies a history of diverticulitis. He states the pain was lower abdomen and continued to worsen. No nausea or vomiting. He did have some diarrhea. He denies fevers or chills. He has not had an appetite since this began. CT scan demonstrates air in his bladder, as well as an area of diverticulitis in the sigmoid colon closely adherent to the urinary bladder. There is no abscess, there is no free perforation. Allergies Allergy/AdvReac Type Severity Reaction Status Date / Time No Known Drug Allergies Allergy Unknown Verified 08/14/23 01:47 Home Medications Medication Instructions Recorded Confirmed Type sildenafil (pulm.hypertension) 20 20 mg PO ONCE PRN sexual activity 05/15/23 08/14/23 Rx mg tablet #30 tabs sulfamethoxazole 800 1 tab PO BID 3 days #6 tabs 08/12/23 08/14/23 Rx mg-trimethoprim 160 mg tablet (Bactrim DS) atorvastatin 40 mg tablet 80 mg PO HS 08/14/23 08/14/23 History silodosin 8 mg capsule (Rapaflo) 8 mg PO QPM 08/14/23 08/14/23 History Patient History Medical History Arthralgia of multiple sites BPH (benign prostatic hyperplasia) Symptoms primarily nocturia, weak stream. Treated with tamsulosin Elevated prostate specific antigen (PSA) Erectile dysfunction Managed with sildenafil Heart murmur, systolic Recurrent UTI Surgical History History of back surgery Hx of tonsillectomy Family History Mother Diabetes Alzheimer disease Parkinson disease Sister Myocardial infarction Grandmother Cardiac disorder Cervical cancer Denies family history of Colon cancer Ovarian cancer Prostate cancer Breast cancer Social History Smoking Status: Never smoker Hx Alcohol Use: Yes Alcohol type: beer Hx Substance Use: No Preferred Language: Turkmen Communication Ability: Effective Visual Impairment: No Limitations Hearing Ability: Normal Gas Adjuster Required: No Beliefs That Will Affect Care: None marital status: Current Living Situation: Spouse current occupational status: retired Feels Safe at Home: Yes Childhood Exposure to Second-Hand Smoke: Yes Dental Care, Regularly: Yes Physical Activity Frequency: 1-2 Times per Week Seatbelt Use: always Sunscreen Use: No Assistive Devices: None Review of Systems Review of Systems: All systems reviewed & are unremarkable except as noted in HPI & below Physical Exam Constitutional: WD/WN, vitals as above Eyes: PERRL, conjunctivae normal, anicteric sclerae Neck: trachea midline, no thyromegaly Respiratory: normal respiratory effort; no respiratory distress and no labored breathing Cardiovascular: Rate/Rhythm: regular rate and regular rhythm Gastrointestinal (Abdomen): Inspection/Auscultation: abdomen normal to inspection; abdomen not distended Percussion/Palpation: + abdomen tender (Bilateral lower quadrants) and abdomen soft; no guarding and abdomen not rigid Skin: no rashes, warm and dry Psychiatric: A+Ox3, euthymic affect Results & Data Vital Signs (Past 12 Hours) Vital Signs Temp Pulse Resp BP BP Pulse Ox O2 Del Method 08/14/23 08:14 18 128/82 96 Room Air 08/14/23 06:58 74 08/14/23 06:30 79 24 113/72 93 08/14/23 06:00 90 08/14/23 04:30 190/131 H 91 08/14/23 04:01 132/88 93 08/14/23 03:00 71 16 147/87 H 97 08/13/23 21:55 36.4 C L 100 H 20 94 Room Air Laboratory Results 08/14/23 08/14/23 08/14/23 Range/Units 07:56 02:12 02:12 WBC (4.8-10.8) K/ul RBC (4.70-6.10) M/uL Hgb (14.0-18.0) g/dl Hct (42.0-52.0) % MCV (80.0-100.0) fL MCH (25.0-34.0) pg MCHC (32.0-36.0) g/dL RDW Std Deviation (36.4-46.3) fL RDW Coeff of Roopa (11.5-14.5) % Plt Count (130-400) K/uL MPV (9.4-12.4) fL Immature Gran % (Auto) % Neut % (Auto) % Lymph % (Auto) % Caroline % (Auto) % Eos % (Auto) % Baso % (Auto) % Neut # (Auto) (1.40-6.50) K/uL Lymph # (Auto) (1.20-3.40) K/uL Caroline # (Auto) (0.11-0.59) K/uL Eos # (Auto) (0.00-0.50) K/uL Baso # (Auto) (0.00-0.20) K/uL Immature Gran # (Auto) (0.01-0.20) K/uL Sodium Pending 112 L* (136-145) mmol/L Potassium Pending 3.9 (3.5-5.1) mmol/L Chloride Pending 83 L (98-107) mmol/L Carbon Dioxide Pending 21 (21-32) mmol/L Anion Gap Pending 8 (3-11) BUN Pending 10 (6-23) mg/dl Creatinine Pending 0.75 (0.6-1.4) mg/dl Est Cr Clr Drug Dosing Pending 101.5 ml/min Est GFR ( Amer) Pending 109.2 ml/min Est GFR (Non-Af Amer) Pending 94.3 ml/min BUN/Creatinine Ratio Pending 13.3 (10-20) Glucose Pending 95 (70-99(Fasting)) mg/dl Osmolality (280-300) mOsm/kg Calcium Pending 8.0 L (8.6-10.3) mg/dl Total Bilirubin (0.2-1.0) mg/dl AST (13-39) U/L ALT (7-52) U/L Alkaline Phosphatase (34-104) U/L Total Protein (6.0-8.3) gm/dl Albumin (3.4-5.0) gm/dl Globulin (2.5-4.0) gm/dl Albumin/Globulin Ratio (0.9-2) TSH (0.300-4.500) uIu/ml Random Cortisol 10.80 mcg/dl Urine Color Urine Appearance (Clear) Urine pH (4.5-7.5) Ur Specific [place] (1.000-1.030) Urine Protein (Negative) Urine Glucose (UA) (Negative) Urine Ketones (Negative) Urine Blood (Negative) Urine Nitrite (Negative) Urine Bilirubin (Negative) Urine Urobilinogen (Negative) Ur Leukocyte Esterase (Negative) Urine RBC (0-4) /hpf Urine WBC (0-5) /hpf Ur Epithelial Cells (0-5) /lpf Urine Bacteria (Negative) 08/14/23 08/13/23 08/13/23 Range/Units 00:51 22:40 22:35 WBC (4.8-10.8) K/ul RBC (4.70-6.10) M/uL Hgb (14.0-18.0) g/dl Hct (42.0-52.0) % MCV (80.0-100.0) fL MCH (25.0-34.0) pg MCHC (32.0-36.0) g/dL RDW Std Deviation (36.4-46.3) fL RDW Coeff of Roopa (11.5-14.5) % Plt Count (130-400) K/uL MPV (9.4-12.4) fL Immature Gran % (Auto) % Neut % (Auto) % Lymph % (Auto) % Caroline % (Auto) % Eos % (Auto) % Baso % (Auto) % Neut # (Auto) (1.40-6.50) K/uL Lymph # (Auto) (1.20-3.40) K/uL Caroline # (Auto) (0.11-0.59) K/uL Eos # (Auto) (0.00-0.50) K/uL Baso # (Auto) (0.00-0.20) K/uL Immature Gran # (Auto) (0.01-0.20) K/uL Sodium 111 L* (136-145) mmol/L Potassium 3.9 (3.5-5.1) mmol/L Chloride 83 L (98-107) mmol/L Carbon Dioxide 22 (21-32) mmol/L Anion Gap 6 (3-11) BUN 10 (6-23) mg/dl Creatinine 0.82 (0.6-1.4) mg/dl Est Cr Clr Drug Dosing 92.9 ml/min Est GFR ( Amer) 105.3 ml/min Est GFR (Non-Af Amer) 90.9 ml/min BUN/Creatinine Ratio 12.2 (10-20) Glucose 110 H (70-99(Fasting)) mg/dl Osmolality 234 L* (280-300) mOsm/kg Calcium 8.1 L (8.6-10.3) mg/dl Total Bilirubin (0.2-1.0) mg/dl AST (13-39) U/L ALT (7-52) U/L Alkaline Phosphatase (34-104) U/L Total Protein (6.0-8.3) gm/dl Albumin (3.4-5.0) gm/dl Globulin (2.5-4.0) gm/dl Albumin/Globulin Ratio (0.9-2) TSH 0.896 (0.300-4.500) uIu/ml Random Cortisol mcg/dl Urine Color Red Urine Appearance Turbid A (Clear) Urine pH 8.5 H (4.5-7.5) Ur Specific [place] 1.015 (1.000-1.030) Urine Protein 3+ H (Negative) Urine Glucose (UA) Negative (Negative) Urine Ketones Trace H (Negative) Urine Blood 3+ H (Negative) Urine Nitrite Negative (Negative) Urine Bilirubin 1+ H (Negative) Urine Urobilinogen Negative (Negative) Ur Leukocyte Esterase 3+ H (Negative) Urine RBC >30 H (0-4) /hpf Urine WBC >30 H (0-5) /hpf Ur Epithelial Cells 5-10 H (0-5) /lpf Urine Bacteria 4+ H (Negative) 08/13/23 08/13/23 Range/Units 22:35 22:35 WBC 9.48 (4.8-10.8) K/ul RBC 4.41 L (4.70-6.10) M/uL Hgb 14.0 (14.0-18.0) g/dl Hct 37.6 L (42.0-52.0) % MCV 85.3 (80.0-100.0) fL MCH 31.7 (25.0-34.0) pg MCHC 37.2 H (32.0-36.0) g/dL RDW Std Deviation 35.6 L (36.4-46.3) fL RDW Coeff of Roopa 11.5 (11.5-14.5) % Plt Count 421 H (130-400) K/uL MPV 8.6 L (9.4-12.4) fL Immature Gran % (Auto) 0.8 % Neut % (Auto) 64.2 % Lymph % (Auto) 21.7 % Caroline % (Auto) 11.3 % Eos % (Auto) 1.7 % Baso % (Auto) 0.3 % Neut # (Auto) 6.08 (1.40-6.50) K/uL Lymph # (Auto) 2.06 (1.20-3.40) K/uL Caroline # (Auto) 1.07 H (0.11-0.59) K/uL Eos # (Auto) 0.16 (0.00-0.50) K/uL Baso # (Auto) 0.03 (0.00-0.20) K/uL Immature Gran # (Auto) 0.08 (0.01-0.20) K/uL Sodium 112 L* (136-145) mmol/L Potassium 4.0 (3.5-5.1) mmol/L Chloride 82 L (98-107) mmol/L Carbon Dioxide 21 (21-32) mmol/L Anion Gap 9 (3-11) BUN 9 (6-23) mg/dl Creatinine 0.77 (0.6-1.4) mg/dl Est Cr Clr Drug Dosing 98.9 ml/min Est GFR ( Amer) 108.1 ml/min Est GFR (Non-Af Amer) 93.2 ml/min BUN/Creatinine Ratio 11.7 (10-20) Glucose 110 H (70-99(Fasting)) mg/dl Osmolality (280-300) mOsm/kg Calcium 8.5 L (8.6-10.3) mg/dl Total Bilirubin 0.5 (0.2-1.0) mg/dl AST 40 H (13-39) U/L ALT 32 (7-52) U/L Alkaline Phosphatase 92 (34-104) U/L Total Protein 7.5 (6.0-8.3) gm/dl Albumin 3.6 (3.4-5.0) gm/dl Globulin 3.9 (2.5-4.0) gm/dl Albumin/Globulin Ratio 0.9 (0.9-2) TSH (0.300-4.500) uIu/ml Random Cortisol mcg/dl Urine Color Urine Appearance (Clear) Urine pH (4.5-7.5) Ur Specific [place] (1.000-1.030) Urine Protein (Negative) Urine Glucose (UA) (Negative) Urine Ketones (Negative) Urine Blood (Negative) Urine Nitrite (Negative) Urine Bilirubin (Negative) Urine Urobilinogen (Negative) Ur Leukocyte Esterase (Negative) Urine RBC (0-4) /hpf Urine WBC (0-5) /hpf Ur Epithelial Cells (0-5) /lpf Urine Bacteria (Negative) Diagnostic Findings Exam(s): CT ABDOMEN + PELVIS Without Contrast EXAM: CT Abdomen and Pelvis Without Intravenous Contrast CLINICAL HISTORY: Reason for exam: lower abd pain. TECHNIQUE: Axial computed tomography images of the abdomen and pelvis without intravenous contrast. Automated exposure control was utilized for the study. A dose lowering technique was utilized adhering to the principles of ALARA. COMPARISON: No relevant prior studies available. FINDINGS: Lung bases: Unremarkable. No mass. No consolidation. ABDOMEN: Liver: Unremarkable. Gallbladder and bile ducts: Unremarkable. No calcified stones. No ductal dilation. Pancreas: Unremarkable. No ductal dilation. Spleen: Unremarkable. No splenomegaly. Adrenals: Unremarkable. No mass. Kidneys and ureters: Moderate left hydroureteronephrosis extrinsic compression from the above-mentioned infectious colitis. Stomach and bowel: See above. PELVIS: Appendix: No findings to suggest acute appendicitis. Bladder: Inflammatory changes and wall thickening involving a short segment of sigmoid colon left hemiabdomen. This is inseparable from the adjacent urinary bladder wall. No pericolonic fluid collections present on this exam. No free air. Moderate left-sided hydronephrosis. Urinary bladder is markedly distended. There is also air seen within the urinary bladder. No stones. Reproductive: Unremarkable as visualized. ABDOMEN and PELVIS: Intraperitoneal space: See above. Bones/joints: No acute fracture. No dislocation. Soft tissues: Unremarkable. Vasculature: Unremarkable. No abdominal aortic aneurysm. Lymph nodes: Unremarkable. No enlarged lymph nodes. IMPRESSION: Diverticulitis involving the sigmoid colon. There is likely a fistulous connection between the inflamed loop of sigmoid colon in the left lower quadrant and the urinary bladder which contains air. Electronically signed by: Carson Osullivan MD 08/14/23 01:25 AM
[2023-08-14 09:17] LABS: BUN Creatinine Ratio 13.4 (10-20); Calcium 7.8 mg/dl (8.6-10.3); Creatinine Clr Calc Pharmacy 92.9 ml/min; Est GFR (African American) 105.3 ml/min; Est GFR (Non-African American) 90.9 ml/min; Potassium 3.8 mmol/L (3.5-5.1)
[2023-08-14] MEDS: PIPERACILLIN/TAZOBACTAM 4.5 GM in DEXTROSE 5% MINI-B 100 ML IV SCH ×3 (09:24→23:48)
[2023-08-14 12:18] LABS: BUN Creatinine Ratio 11.3 (10-20); Calcium 7.9 mg/dl (8.6-10.3); Creatinine Clr Calc Pharmacy 78.5 ml/min; Est GFR (African American) 92.6 ml/min; Est GFR (Non-African American) 79.9 ml/min; Potassium 3.9 mmol/L (3.5-5.1)
[2023-08-14] MEDS: MoRPHine SULFATE 2 MG/ML CARP IV PRN ×3 (12:53→20:13)
[2023-08-14] MEDS ORDERED: STAT IV/IM STA (16:05)
[2023-08-14 17:03] LABS: BUN Creatinine Ratio 12.1 (10-20); Calcium 7.9 mg/dl (8.6-10.3); Creatinine Clr Calc Pharmacy 83.7 ml/min; Est GFR (Non-African American) 86.3 ml/min; Potassium 3.9 mmol/L (3.5-5.1)
[2023-08-14] MEDS: SODIUM CHLORIDE 3 % 500 ML IV SCH (17:16)
[2023-08-14] MEDS ORDERED: DESMOPRESSIN ACETATE 4 MCG/ML 1 ML AMP SQ SCH (18:00)
[2023-08-14 21:14] LABS: BUN Creatinine Ratio 12.4 (10-20); Calcium 7.9 mg/dl (8.6-10.3); Creatinine Clr Calc Pharmacy 85.6 ml/min; Est GFR (African American) 101.8 ml/min; Est GFR (Non-African American) 87.9 ml/min; Potassium 3.9 mmol/L (3.5-5.1)
[2023-08-14] MEDS: ATORVASTATIN 40 MG TAB PO SCH (21:33)
[2023-08-15] MEDS ORDERED: DESMOPRESSIN ACETATE 4 MCG/ML 1 ML AMP SQ SCH (00:30)
[2023-08-15] MEDS: DESMOPRESSIN ACETATE 4 MCG/ML 10 ML VIAL SQ SCH ×5 (00:32→23:07)
[2023-08-15 00:53] LABS: BUN Creatinine Ratio 11.6 (10-20); Creatinine Clr Calc Pharmacy 82.6 ml/min; Est GFR (African American) 94.9 ml/min; Est GFR (Non-African American) 81.9 ml/min; Potassium 3.9 mmol/L (3.5-5.1)
[2023-08-15] MEDS ORDERED: SODIUM CHLORIDE 3 % 50 ML IV ONE ×2 (01:12→21:38)
[2023-08-15] MEDS ORDERED: STAT IV/IM STA ×2 (01:12→21:38)
[2023-08-15] MEDS: MoRPHine SULFATE 4 MG/ML 1 ML CARP\\VIAL IV PRN ×2 (03:19→22:56)
[2023-08-15 03:40] LABS: Hematocrit (blood only) 31.6 % (42.0-52.0); Hemoglobin 11.9 g/dl (14.0-18.0); Mean Corpuscular Hemoglobin 32.1 pg (25.0-34.0); Mean Corpuscular Hgb Conc 37.7 g/dL (32.0-36.0); Mean Corpuscular Volume 85.2 fL (80.0-100.0); Mean Platelet Volume 8.1 fL (9.4-12.4); Platelet Count 356 K/uL (130-400); RDW Coefficient of Variation 11.8 % (11.5-14.5); Red Blood Count 3.71 M/uL (4.70-6.10); White Blood Count 7.89 K/ul (4.8-10.8)
[2023-08-15 03:58] LABS: Albumin Level 3.1 gm/dl (3.4-5.0); Bilirubin Direct 0.1 mg/dl (0-0.2); Bilirubin,Total 0.5 mg/dl (0.2-1.0); Total Protein 6.2 gm/dl (6.0-8.3)
[2023-08-15 04:37] LABS: BUN Creatinine Ratio 13.6 (10-20); Calcium 7.8 mg/dl (8.6-10.3); Creatinine Clr Calc Pharmacy 97.1 ml/min; Est GFR (African American) 105.8 ml/min; Est GFR (Non-African American) 91.3 ml/min; Potassium 3.9 mmol/L (3.5-5.1)
[2023-08-15] MEDS: MoRPHine SULFATE 2 MG/ML CARP IV PRN ×5 (05:59→19:38)
--- NOTE | 2023-08-15 07:09 | Hospitalist Progress Note ---
Date of Service August 15, 2023 Assessment & Plan (1) Acute hyponatremia: (2) Diverticulitis: (3) UTI (urinary tract infection): Plan #Acute hyponatremia: - Na 111 on admission. 118 last reading - Likely secondary to Bactrim, possibly exacerbated by excess water intake - Continue 3% hypertonic saline infusion, reduce rate to 10ml/hour to moderate rate of increase - Continue desmopressin 1mcg Q6h to prevent excess water diuresis and to regulate rate of sodium increase - Fluid restriction 1200mL - continue serial BMP Q4H and titrate hypertonic saline infusion rate accordingly to avoid overcorrection. #Diverticulitis: - CT significant for sigmoid diverticulitis with possible colovesicular fistula - General surgery consulted, no immediate need for surgical intervention, continue to appreciate recs - Continue IV Zosyn - Morphine as needed for pain - Zofran as needed for nausea - Blood cultures negative at 24 hours #UTI: - CT with possible colovesicular fistula, air noted in bladder - Continue IV Zosyn - Urology consulted, no immediate need for intervention, continue conservative management, continue to appreciate recs - Postvoid bladder scan done, residual volume 160mL, no further intervention at this time but will continue to monitor for urinary retention - Urine culture shows 3 types of organisms, all present in high counts. Repeat collection deferred given that patient has been on antibiotics for 2 days now VTE ppx: Lovenox Diet: Full liquids Admission and Anticipated Discharge Date Admission Date: August 14, 2023 Supervising Physician Co-Signing Physician Notes Resident Physician Supervision Note: I independently interviewed and examined the patient and verified the irizarry history and physical, reviewed labs and image studies and agree with resident findings and care plan. Subjective Mr. Polanco is a 68yo male with history of BPH and HLP presenting with pelvic/lower abdominal discomfort. Patient evaluated at bedside, appears to be in no apparent distress but states that he has ongoing lower abdominal/suprapubic pain requiring pain medication. Tolerating PO clear liquids with no associated exacerbation of abdominal pain. Passing gas, no bowel movement. Denies fever or chills. Denies dysuria. Review of Systems Review of Systems: All systems reviewed & are unremarkable except as noted in HPI & below Physical Exam Constitutional: WD/WN, vitals as above no acute distress Respiratory: normal respiratory effort, lungs clear to auscultation Cardiovascular: RRR, no murmur, no edema Gastrointestinal (Abdomen): Bowel sounds normal, RLQ and LLQ abdominal tenderness to palpation, no guarding or rigidity Skin: no rashes, warm and dry Psychiatric: A+Ox3, euthymic affect Results & Data Results & Data Vital Signs (Past 12 Hours) Vital Signs Temp Pulse Pulse Resp BP BP BP 08/15/23 02:51 37 C 80 18 125/79 08/14/23 23:19 77 08/14/23 23:13 36.6 C 79 21 150/85 H 08/14/23 22:35 78 16 124/77 08/14/23 22:00 75 15 08/14/23 22:00 124/77 08/14/23 21:35 106/72 08/14/23 21:35 81 19 08/14/23 21:30 76 19 08/14/23 20:30 77 16 08/14/23 20:00 74 17 08/14/23 19:30 73 15 08/14/23 19:57 79 16 139/82 Pulse Ox O2 Del Method 08/15/23 02:51 95 Room Air 08/14/23 23:19 08/14/23 23:13 96 Room Air 08/14/23 22:35 93 Room Air 08/14/23 22:00 91 08/14/23 22:00 08/14/23 21:35 08/14/23 21:35 08/14/23 21:30 08/14/23 20:30 94 08/14/23 20:00 08/14/23 19:30 94 08/14/23 19:57 96 Room Air Laboratory Results Abnormal lab results 08/14/23 08/14/23 08/14/23 Range/Units 15:40 20:01 21:08 RBC (4.70-6.10) M/uL Hgb (14.0-18.0) g/dl Hct (42.0-52.0) % MCHC (32.0-36.0) g/dL RDW Std Deviation (36.4-46.3) fL MPV (9.4-12.4) fL Sodium 113 L* 113 L* (136-145) mmol/L Chloride 83 L 84 L (98-107) mmol/L Glucose 115 H 113 H (70-99(Fasting)) mg/dl Osmolality (280-300) mOsm/kg Calcium 7.9 L 7.9 L (8.6-10.3) mg/dl Albumin (3.4-5.0) gm/dl Urine Osmolality 375 L (500-800) mOsm/kg 08/14/23 08/15/23 08/15/23 Range/Units 23:50 03:21 03:21 RBC 3.71 L (4.70-6.10) M/uL Hgb 11.9 L (14.0-18.0) g/dl Hct 31.6 L (42.0-52.0) % MCHC 37.7 H (32.0-36.0) g/dL RDW Std Deviation 36.0 L (36.4-46.3) fL MPV 8.1 L (9.4-12.4) fL Sodium 113 L* 115 L* (136-145) mmol/L Chloride 85 L 88 L (98-107) mmol/L Glucose 125 H 109 H (70-99(Fasting)) mg/dl Osmolality (280-300) mOsm/kg Calcium 8.0 L 7.8 L (8.6-10.3) mg/dl Albumin (3.4-5.0) gm/dl Urine Osmolality (500-800) mOsm/kg 08/15/23 08/15/23 08/15/23 Range/Units 03:21 05:39 08:34 RBC (4.70-6.10) M/uL Hgb (14.0-18.0) g/dl Hct (42.0-52.0) % MCHC (32.0-36.0) g/dL RDW Std Deviation (36.4-46.3) fL MPV (9.4-12.4) fL Sodium 118 L* (136-145) mmol/L Chloride 88 L (98-107) mmol/L Glucose (70-99(Fasting)) mg/dl Osmolality 248 L (280-300) mOsm/kg Calcium 7.7 L (8.6-10.3) mg/dl Albumin 3.1 L (3.4-5.0) gm/dl Urine Osmolality (500-800) mOsm/kg 08/15/23 Range/Units 09:41 RBC (4.70-6.10) M/uL Hgb (14.0-18.0) g/dl Hct (42.0-52.0) % MCHC (32.0-36.0) g/dL RDW Std Deviation (36.4-46.3) fL MPV (9.4-12.4) fL Sodium 118 L* (136-145) mmol/L Chloride 89 L (98-107) mmol/L Glucose 105 H (70-99(Fasting)) mg/dl Osmolality (280-300) mOsm/kg Calcium 7.9 L (8.6-10.3) mg/dl Albumin (3.4-5.0) gm/dl Urine Osmolality (500-800) mOsm/kg Resident Activity Tracking Resident Involvement: Resident Care Provided Care Provided: Adult Hospital Medicine
[2023-08-15 07:47] LABS: BUN Creatinine Ratio 14.1 (10-20); Calcium 7.7 mg/dl (8.6-10.3); Creatinine Clr Calc Pharmacy 92.5 ml/min; Est GFR (African American) 103.8 ml/min; Est GFR (Non-African American) 89.5 ml/min; Potassium 3.9 mmol/L (3.5-5.1)
--- NOTE | 2023-08-15 08:20 | Urology Progress Note ---
Date of Service August 15, 2023 Assessment & Plan (1) UTI (urinary tract infection): (2) Diverticulitis: Plan 68yo/M admitted to medicine service with hyponatremia, UTI, diverticulitis. CT abdomen pelvis notable for diverticulitis involving the sigmoid colon and likely a fistulous connection between the inflamed loop of sigmoid colon in the left lower quadrant and the urinary bladder which contains air. Urology consulted for colovesical fistula. Afebrile and hemodynamically stable. Labs reviewed-no leukocytosis, normal renal function. Urine culture 07/29 grew E. coli and Proteus. Repeat urine culture shows more than 3 types of organisms all high counts. Blood cultures preliminary no growth. Voiding spontaneously, continue to monitor. No acute intervention warranted. Continue antibiotics and tailor as culture data becomes available. Recommend bladder scan after next void and as needed to monitor for retention. If patient found to be in urinary retention, recommend Rawls catheter placement. Continue supportive care and management per primary team. We reviewed his CT findings in detail. Discussed the risk of recurrent UTI with a fistula. We discussed possible further work-up with outpatient cystoscopy however, he will likely need work-up with general or colorectal surgery for management of the colovesical fistula. Urology will follow peripherally. Please contact us any further questions, concerns, or changes in patient status. Admission and Anticipated Discharge Date Admission Date: August 14, 2023 Subjective Patient examined at bedside this AM. Awake, resting in bed on arrival. No acute distress. Still with lower abdominal/suprapubic discomfort. Denies fevers, chills, nausea, vomiting. Voiding without issue, denies hematuria or dysuria. Feels he is emptying his bladder well. Review of Systems Constitutional: as per Subjective / HPI Gastrointestinal: as per Subjective / HPI Genitourinary: + as per Subjective / HPI Physical Exam Constitutional: no acute distress Respiratory: no respiratory distress and no labored breathing Skin: No visible rashes or lesions to exposed skin areas Neurologic: moves all extremities and awake Psychiatric: A+Ox3, euthymic affect Results & Data Vital Signs (Past 12 Hours) Vital Signs Temp Pulse Pulse Resp BP BP BP 08/15/23 02:51 37 C 80 18 125/79 08/14/23 23:19 77 08/14/23 23:13 36.6 C 79 21 150/85 H 08/14/23 22:35 78 16 124/77 08/14/23 22:00 75 15 08/14/23 22:00 124/77 08/14/23 21:35 106/72 08/14/23 21:35 81 19 08/14/23 21:30 76 19 08/14/23 20:30 77 16 Pulse Ox O2 Del Method 08/15/23 02:51 95 Room Air 08/14/23 23:19 08/14/23 23:13 96 Room Air 08/14/23 22:35 93 Room Air 08/14/23 22:00 91 08/14/23 22:00 08/14/23 21:35 08/14/23 21:35 08/14/23 21:30 08/14/23 20:30 94 PG Care Time/CCT Total # of Minutes Spent Total Time Spent with Patient: Total time spent is greater than 50% in coordination of care (as documented) at patient's floor/unit and/or counseling patient: Coding Level of Care Code 14627 SUB INP/OBS CARE MIN Diagnoses UTI (urinary tract infection) N39.0 Diverticulitis K57.92
[2023-08-15] MEDS: ENOXAPARIN INJ 40 MG/0.4 ML SYR SQ SCH (09:01)
[2023-08-15] MEDS: PIPERACILLIN/TAZOBACTAM 4.5 GM in DEXTROSE 5% MINI-B 100 ML IV SCH ×3 (09:01→23:07)
[2023-08-15] MEDS: SODIUM CHLORIDE 3 % 500 ML IV SCH ×2 (09:02→14:21)
[2023-08-15] MEDS: ONDANSETRON INJ 2 MG/ML 2 ML VIAL IV PRN ×2 (09:28→19:47)
--- NOTE | 2023-08-15 10:19 | Surgery Progress Note ---
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 There is no abscess or free perforation. There is no urgent surgical need at this time. He has not had a colonoscopy in over 10 years a nd will need a colonoscopy in 6-8 weeks. Plan: Continue pain management continue IV antibiotics slowly advance diet to low fiber Continue medical management Will follow along Dr. Fontana has seen and examined patient, agrees with above. Admission and Anticipated Discharge Date Admission Date: August 14, 2023 Subjective feeling about the same, pain about the same, still requiring IV morhpine urinating without difficulty no n,v Physical Exam Constitutional: WD/WN, vitals as above cooperative and comfortable; no acute distress and not ill appearing Gastrointestinal (Abdomen): Inspection/Auscultation: abdomen normal to inspection; abdomen not distended Percussion/Palpation: + abdomen tender (Left mid to lower abdomen) and abdomen soft; no guarding, abdomen not rigid and abdomen not firm Skin: no rashes, warm and dry Psychiatric: Orientation: alert and oriented x 3 Results & Data Vital Signs (Past 12 Hours) Vital Signs Temp Pulse Pulse Resp BP BP BP 08/15/23 08:00 79 08/15/23 02:51 37 C 80 18 125/79 08/14/23 23:19 77 08/14/23 23:13 36.6 C 79 21 150/85 H 08/14/23 22:35 78 16 124/77 Pulse Ox O2 Del Method 08/15/23 08:00 08/15/23 02:51 95 Room Air 08/14/23 23:19 08/14/23 23:13 96 Room Air 08/14/23 22:35 93 Room Air Laboratory Results 08/15/23 08/15/23 08/15/23 Range/Units 09:41 08:34 05:39 WBC (4.8-10.8) K/ul RBC (4.70-6.10) M/uL Hgb (14.0-18.0) g/dl Hct (42.0-52.0) % MCV (80.0-100.0) fL MCH (25.0-34.0) pg MCHC (32.0-36.0) g/dL RDW Std Deviation (36.4-46.3) fL RDW Coeff of Roopa (11.5-14.5) % Plt Count (130-400) K/uL MPV (9.4-12.4) fL Sodium Pending 118 L* (136-145) mmol/L Potassium Pending 3.9 (3.5-5.1) mmol/L Chloride Pending 88 L (98-107) mmol/L Carbon Dioxide Pending 23 (21-32) mmol/L Anion Gap Pending 7 (3-11) BUN Pending 12 (6-23) mg/dl Creatinine Pending 0.85 (0.6-1.4) mg/dl Est Cr Clr Drug Dosing Pending 92.5 ml/min Est GFR ( Amer) Pending 103.8 ml/min Est GFR (Non-Af Amer) Pending 89.5 ml/min BUN/Creatinine Ratio Pending 14.1 (10-20) Glucose Pending 97 (70-99(Fasting)) mg/dl Osmolality 248 L (280-300) mOsm/kg Calcium Pending 7.7 L (8.6-10.3) mg/dl Total Bilirubin (0.2-1.0) mg/dl Direct Bilirubin (0-0.2) mg/dl AST (13-39) U/L ALT (7-52) U/L Alkaline Phosphatase (34-104) U/L Total Protein (6.0-8.3) gm/dl Albumin (3.4-5.0) gm/dl Urine Osmolality (500-800) mOsm/kg Ur Random Sodium mmol/L 08/15/23 08/15/23 08/15/23 Range/Units 03:21 03:21 03:21 WBC 7.89 (4.8-10.8) K/ul RBC 3.71 L (4.70-6.10) M/uL Hgb 11.9 L (14.0-18.0) g/dl Hct 31.6 L (42.0-52.0) % MCV 85.2 (80.0-100.0) fL MCH 32.1 (25.0-34.0) pg MCHC 37.7 H (32.0-36.0) g/dL RDW Std Deviation 36.0 L (36.4-46.3) fL RDW Coeff of Roopa 11.8 (11.5-14.5) % Plt Count 356 (130-400) K/uL MPV 8.1 L (9.4-12.4) fL Sodium 115 L* (136-145) mmol/L Potassium 3.9 (3.5-5.1) mmol/L Chloride 88 L (98-107) mmol/L Carbon Dioxide 23 (21-32) mmol/L Anion Gap 4 (3-11) BUN 11 (6-23) mg/dl Creatinine 0.81 (0.6-1.4) mg/dl Est Cr Clr Drug Dosing 97.1 ml/min Est GFR ( Amer) 105.8 ml/min Est GFR (Non-Af Amer) 91.3 ml/min BUN/Creatinine Ratio 13.6 (10-20) Glucose 109 H (70-99(Fasting)) mg/dl Osmolality (280-300) mOsm/kg Calcium 7.8 L (8.6-10.3) mg/dl Total Bilirubin 0.5 (0.2-1.0) mg/dl Direct Bilirubin 0.1 (0-0.2) mg/dl AST 38 (13-39) U/L ALT 34 (7-52) U/L Alkaline Phosphatase 72 (34-104) U/L Total Protein 6.2 (6.0-8.3) gm/dl Albumin 3.1 L (3.4-5.0) gm/dl Urine Osmolality (500-800) mOsm/kg Ur Random Sodium mmol/L 08/14/23 08/14/23 08/14/23 Range/Units 23:50 21:08 21:08 WBC (4.8-10.8) K/ul RBC (4.70-6.10) M/uL Hgb (14.0-18.0) g/dl Hct (42.0-52.0) % MCV (80.0-100.0) fL MCH (25.0-34.0) pg MCHC (32.0-36.0) g/dL RDW Std Deviation (36.4-46.3) fL RDW Coeff of Roopa (11.5-14.5) % Plt Count (130-400) K/uL MPV (9.4-12.4) fL Sodium 113 L* (136-145) mmol/L Potassium 3.9 (3.5-5.1) mmol/L Chloride 85 L (98-107) mmol/L Carbon Dioxide 24 (21-32) mmol/L Anion Gap 4 (3-11) BUN 11 (6-23) mg/dl Creatinine 0.95 (0.6-1.4) mg/dl Est Cr Clr Drug Dosing 82.6 ml/min Est GFR ( Amer) 94.9 ml/min Est GFR (Non-Af Amer) 81.9 ml/min BUN/Creatinine Ratio 11.6 (10-20) Glucose 125 H (70-99(Fasting)) mg/dl Osmolality (280-300) mOsm/kg Calcium 8.0 L (8.6-10.3) mg/dl Total Bilirubin (0.2-1.0) mg/dl Direct Bilirubin (0-0.2) mg/dl AST (13-39) U/L ALT (7-52) U/L Alkaline Phosphatase (34-104) U/L Total Protein (6.0-8.3) gm/dl Albumin (3.4-5.0) gm/dl Urine Osmolality 375 L (500-800) mOsm/kg Ur Random Sodium 27 mmol/L 08/14/23 08/14/23 08/14/23 Range/Units 20:01 15:40 11:42 WBC (4.8-10.8) K/ul RBC (4.70-6.10) M/uL Hgb (14.0-18.0) g/dl Hct (42.0-52.0) % MCV (80.0-100.0) fL MCH (25.0-34.0) pg MCHC (32.0-36.0) g/dL RDW Std Deviation (36.4-46.3) fL RDW Coeff of Roopa (11.5-14.5) % Plt Count (130-400) K/uL MPV (9.4-12.4) fL Sodium 113 L* 113 L* 111 L* (136-145) mmol/L Potassium 3.9 3.9 3.9 (3.5-5.1) mmol/L Chloride 84 L 83 L 83 L (98-107) mmol/L Carbon Dioxide 23 25 24 (21-32) mmol/L Anion Gap 6 5 4 (3-11) BUN 11 11 11 (6-23) mg/dl Creatinine 0.89 0.91 0.97 (0.6-1.4) mg/dl Est Cr Clr Drug Dosing 85.6 83.7 78.5 ml/min Est GFR ( Amer) 101.8 100.0 92.6 ml/min Est GFR (Non-Af Amer) 87.9 86.3 79.9 ml/min BUN/Creatinine Ratio 12.4 12.1 11.3 (10-20) Glucose 113 H 115 H 122 H (70-99(Fasting)) mg/dl Osmolality (280-300) mOsm/kg Calcium 7.9 L 7.9 L 7.9 L (8.6-10.3) mg/dl Total Bilirubin (0.2-1.0) mg/dl Direct Bilirubin (0-0.2) mg/dl AST (13-39) U/L ALT (7-52) U/L Alkaline Phosphatase (34-104) U/L Total Protein (6.0-8.3) gm/dl Albumin (3.4-5.0) gm/dl Urine Osmolality (500-800) mOsm/kg Ur Random Sodium mmol/L
[2023-08-15 10:22] LABS: BUN Creatinine Ratio 13.8 (10-20); Calcium 7.9 mg/dl (8.6-10.3); Creatinine Clr Calc Pharmacy 90.4 ml/min; Est GFR (African American) 102.8 ml/min; Est GFR (Non-African American) 88.7 ml/min; Potassium 4.2 mmol/L (3.5-5.1)
[2023-08-15 14:37] LABS: BUN Creatinine Ratio 13.6 (10-20); Calcium 7.9 mg/dl (8.6-10.3); Creatinine Clr Calc Pharmacy 97.1 ml/min; Est GFR (African American) 105.8 ml/min; Est GFR (Non-African American) 91.3 ml/min; Potassium 3.7 mmol/L (3.5-5.1)
[2023-08-15 17:33] LABS: BUN Creatinine Ratio 12.2 (10-20); Calcium 7.9 mg/dl (8.6-10.3); Creatinine Clr Calc Pharmacy 95.9 ml/min; Est GFR (African American) 105.3 ml/min; Est GFR (Non-African American) 90.9 ml/min
[2023-08-15] MEDS ORDERED: MELATONIN 3 MG TAB PO PRN ×2 (18:16→19:30)
[2023-08-15] MEDS: ATORVASTATIN 40 MG TAB PO SCH (20:18)
[2023-08-15 21:36] LABS: Calcium 7.9 mg/dl (8.6-10.3); Creatinine Clr Calc Pharmacy 102.1 ml/min; Est GFR (African American) 108.1 ml/min; Est GFR (Non-African American) 93.2 ml/min; Potassium 3.8 mmol/L (3.5-5.1)
[2023-08-16 01:30] LABS: BUN Creatinine Ratio 13.3 (10-20); Calcium 7.7 mg/dl (8.6-10.3); Creatinine Clr Calc Pharmacy 104.8 ml/min; Est GFR (African American) 109.2 ml/min; Est GFR (Non-African American) 94.3 ml/min; Potassium 3.7 mmol/L (3.5-5.1)
[2023-08-16] MEDS ORDERED: STAT IV/IM STA ×3 (01:32→16:53)
[2023-08-16] MEDS ORDERED: SODIUM CHLORIDE 3 % 50 ML IV ONE ×2 (01:32→16:53)
[2023-08-16] MEDS: ONDANSETRON INJ 2 MG/ML 2 ML VIAL IV PRN ×2 (02:01→08:02)
[2023-08-16] MEDS: MoRPHine SULFATE 4 MG/ML 1 ML CARP\\VIAL IV PRN ×6 (02:02→21:26)
[2023-08-16 04:47] LABS: Hematocrit (blood only) 31.9 % (42.0-52.0); Hemoglobin 11.6 g/dl (14.0-18.0); Mean Corpuscular Hemoglobin 31.4 pg (25.0-34.0); Mean Corpuscular Hgb Conc 36.4 g/dL (32.0-36.0); Mean Corpuscular Volume 86.4 fL (80.0-100.0); Mean Platelet Volume 8.3 fL (9.4-12.4); Platelet Count 377 K/uL (130-400); RDW Coefficient of Variation 11.9 % (11.5-14.5); RDW Standard Deviation 38.2 fL (36.4-46.3); Red Blood Count 3.69 M/uL (4.70-6.10); White Blood Count 7.82 K/ul (4.8-10.8)
[2023-08-16 04:59] LABS: BUN Creatinine Ratio 11.7 (10-20); Calcium 7.8 mg/dl (8.6-10.3); Creatinine Clr Calc Pharmacy 102.1 ml/min; Est GFR (African American) 108.1 ml/min; Est GFR (Non-African American) 93.2 ml/min; Potassium 3.8 mmol/L (3.5-5.1)
[2023-08-16] MEDS ORDERED: PROCHLORPERAZINE 5 MG in SYRINGE 4 ML IV PRN (05:02)
[2023-08-16] MEDS: MoRPHine SULFATE 2 MG/ML CARP IV PRN (05:10)
--- NOTE | 2023-08-16 05:33 | Surgery Progress Note ---
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 There is no abscess or free perforation. There is no urgent surgical need at this time. He has not had a colonoscopy in over 10 years a nd will need a colonoscopy in 6-8 weeks. Plan: Continue pain management continue IV antibiotics slowly advance diet to low fiber Continue medical management Will follow along Admission and Anticipated Discharge Date Admission Date: August 14, 2023 Subjective Still doing about the same today. Still requiring pain medication. No fevers. No nausea or vomiting. Physical Exam Constitutional: WD/WN, vitals as above comfortable; no acute distress Gastrointestinal (Abdomen): Inspection/Auscultation: abdomen normal to inspection; abdomen not distended Percussion/Palpation: + abdomen tender (Left mid to lower abdomen) and abdomen soft; no guarding, abdomen not rigid and abdomen not firm Results & Data Vital Signs (Past 12 Hours) Vital Signs Temp Pulse Pulse Resp BP Pulse Ox O2 Del Method 08/16/23 03:19 36.8 C 70 18 119/71 94 Room Air 08/16/23 01:11 76 08/15/23 23:30 36.7 C 81 18 138/79 95 Room Air 08/15/23 19:16 36.5 C 78 18 137/82 95 Room Air
[2023-08-16] MEDS: DESMOPRESSIN ACETATE 4 MCG/ML 10 ML VIAL SQ SCH ×3 (06:27→17:28)
--- NOTE | 2023-08-16 06:59 | Hospitalist Progress Note ---
Date of Service August 16, 2023 Assessment & Plan (1) Acute hyponatremia: (2) Diverticulitis: (3) UTI (urinary tract infection): Plan #Acute hyponatremia: - Na 111 on admission. 122 last reading. - s/p 50 cc bolus of hypertonic saline overnight - Likely secondary to Bactrim, possibly exacerbated by excess water intake - Continue 3% hypertonic saline infusion at rate of 20ml/hour - Continue desmopressin 1mcg Q6h to prevent excess water diuresis and to regulat e rate of sodium increase - Fluid restriction 1200mL - continue serial BMP Q4H and titrate hypertonic saline infusion rate accordingly to avoid overcorrection. #Diverticulitis: - CT significant for sigmoid diverticulitis with possible colovesicular fistula - General surgery consulted, no immediate need for surgical intervention, continue to appreciate recs - Continue IV Zosyn - Morphine as needed for pain - Zofran as needed for nausea #UTI: - CT with possible colovesicular fistula, air noted in bladder - Continue IV Zosyn - Urology consulted, no immediate need for intervention, continue conservative management, continue to appreciate recs - Postvoid bladder scan done 08/15, residual volume 160mL, no further intervention at this time but will continue to monitor as needed for urinary retention - Urine culture significant for 3 types of organisms, all present in high counts. Repeat collection deferred given that patient has been on antibiotics for 2 days now VTE ppx: Lovenox FEN: IV Hypertonic Saline, Full liquids - advance as tolerated Admission and Anticipated Discharge Date Admission Date: August 14, 2023 Supervising Physician Co-Signing Physician Notes Resident Physician Supervision Note: I independently interviewed and examined the patient and verified the irizarry history and physical, reviewed labs and image studies and agree with resident findings and care plan. Subjective Mr. Polanco is a 68yo male with history of BPH and HLP presenting with pelvic/lower abdominal discomfort. Patient evaluated at bedside, continues to endorse lower abdominal/suprapubic pain requiring pain medication. Tolerating PO full liquids with no associated exacerbation of abdominal pain. Passing gas, no bowel movement. Denies fever or chills. Endorses mild dysuria, notes that urine is still dark, also thinks he may be passing air per urethra but is unsure. Review of Systems Review of Systems: All systems reviewed & are unremarkable except as noted in HPI & below Physical Exam Constitutional: WD/WN, vitals as above no acute distress Respiratory: normal respiratory effort, lungs clear to auscultation Cardiovascular: RRR, no murmur, no edema Gastrointestinal (Abdomen): Bowel sounds normal, RLQ and LLQ abdominal tenderness to palpation, no guarding or rigidity Skin: no rashes, warm and dry Psychiatric: A+Ox3, euthymic affect Results & Data Results & Data Vital Signs (Past 12 Hours) Vital Signs Temp Pulse Pulse Resp BP Pulse Ox O2 Del Method 08/16/23 03:19 36.8 C 70 18 119/71 94 Room Air 08/16/23 01:11 76 08/15/23 23:30 36.7 C 81 18 138/79 95 Room Air 08/15/23 19:16 36.5 C 78 18 137/82 95 Room Air Laboratory Results Abnormal lab results 08/15/23 08/15/23 08/15/23 Range/Units 09:41 12:20 16:58 RBC (4.70-6.10) M/uL Hgb (14.0-18.0) g/dl Hct (42.0-52.0) % MCHC (32.0-36.0) g/dL MPV (9.4-12.4) fL Sodium 118 L* 117 L* 118 L* (136-145) mmol/L Chloride 89 L 88 L 88 L (98-107) mmol/L Glucose 105 H 132 H (70-99(Fasting)) mg/dl Osmolality (280-300) mOsm/kg Calcium 7.9 L 7.9 L 7.9 L (8.6-10.3) mg/dl Urine Osmolality (500-800) mOsm/kg 08/15/23 08/16/23 08/16/23 Range/Units 20:37 00:12 02:13 RBC (4.70-6.10) M/uL Hgb (14.0-18.0) g/dl Hct (42.0-52.0) % MCHC (32.0-36.0) g/dL MPV (9.4-12.4) fL Sodium 118 L* 119 L* (136-145) mmol/L Chloride 88 L 90 L (98-107) mmol/L Glucose 110 H 104 H (70-99(Fasting)) mg/dl Osmolality (280-300) mOsm/kg Calcium 7.9 L 7.7 L (8.6-10.3) mg/dl Urine Osmolality 495 L (500-800) mOsm/kg 08/16/23 08/16/23 08/16/23 Range/Units 04:20 04:20 04:20 RBC 3.69 L (4.70-6.10) M/uL Hgb 11.6 L (14.0-18.0) g/dl Hct 31.9 L (42.0-52.0) % MCHC 36.4 H (32.0-36.0) g/dL MPV 8.3 L (9.4-12.4) fL Sodium 120 L (136-145) mmol/L Chloride 91 L (98-107) mmol/L Glucose (70-99(Fasting)) mg/dl Osmolality 251 L (280-300) mOsm/kg Calcium 7.8 L (8.6-10.3) mg/dl Urine Osmolality (500-800) mOsm/kg 08/16/23 Range/Units 07:56 RBC (4.70-6.10) M/uL Hgb (14.0-18.0) g/dl Hct (42.0-52.0) % MCHC (32.0-36.0) g/dL MPV (9.4-12.4) fL Sodium 122 L (136-145) mmol/L Chloride 90 L (98-107) mmol/L Glucose (70-99(Fasting)) mg/dl Osmolality (280-300) mOsm/kg Calcium 7.9 L (8.6-10.3) mg/dl Urine Osmolality (500-800) mOsm/kg Resident Activity Tracking Resident Involvement: Resident Care Provided Care Provided: [facility] Medicine
[2023-08-16] MEDS: ENOXAPARIN INJ 40 MG/0.4 ML SYR SQ SCH (08:02)
[2023-08-16] MEDS: PIPERACILLIN/TAZOBACTAM 4.5 GM in DEXTROSE 5% MINI-B 100 ML IV SCH ×2 (08:03→15:08)
[2023-08-16 09:02] LABS: BUN Creatinine Ratio 11.4 (10-20); Calcium 7.9 mg/dl (8.6-10.3); Creatinine Clr Calc Pharmacy 98.8 ml/min; Est GFR (African American) 106.9 ml/min; Est GFR (Non-African American) 92.3 ml/min; Potassium 3.9 mmol/L (3.5-5.1)
[2023-08-16 13:10] LABS: BUN Creatinine Ratio 11.5 (10-20); Calcium 7.8 mg/dl (8.6-10.3); Est GFR (African American) 107.5 ml/min; Est GFR (Non-African American) 92.8 ml/min; Potassium 3.6 mmol/L (3.5-5.1)
--- NOTE | 2023-08-16 15:08 | Urology Progress Note ---
Date of Service August 16, 2023 Assessment & Plan (1) UTI (urinary tract infection): (2) Diverticulitis: Plan 68yo/M admitted to medicine service with hyponatremia, UTI, diverticulitis. CT abdomen pelvis notable for diverticulitis involving the sigmoid colon and likely a fistulous connection between the inflamed loop of sigmoid colon in the left lower quadrant and the urinary bladder which contains air. Urology consulted for colovesical fistula. Afebrile and hemodynamically stable. Labs reviewed-no leukocytosis, normal renal function. Urine culture 07/29 grew E. coli and Proteus. Repeat urine culture shows more than 3 types of organisms all high counts. Blood cultures preliminary no growth. Voiding spontaneously, continue to monitor. PVR yesterday of 160mL, which is acceptable. Encourage double voiding. Continue to monitor. Bladder scan PRN to monitor for retention. No acute intervention warranted. Continue antibiotics and tailor as culture data becomes available. Continue supportive care and management per primary team. We reviewed his CT findings in detail. Discussed the risk of recurrent UTI with a fistula. We discussed possible further work-up with outpatient cystoscopy however, he will likely need work-up with general or colorectal surgery for management of the colovesical fistula. Urology will follow peripherally. Please contact us any further questions, concerns, or changes in patient status. Admission and Anticipated Discharge Date Admission Date: August 14, 2023 Subjective Patient examined at bedside this AM. Awake, resting in bed on arrival. No acute distress. Reports feeling somewhat better today. Still with lower abdominal/suprapubic discomfort but reports an improvement since yesterday. Denies fevers, chills, nausea, vomiting. Voiding without issue, denies hematuria. Feels he is emptying his bladder well. Postvoid residual yesterday was 160 mL Review of Systems Constitutional: as per Subjective / HPI Gastrointestinal: as per Subjective / HPI Genitourinary: + as per Subjective / HPI Physical Exam Constitutional: no acute distress Respiratory: no respiratory distress and no labored breathing Skin: No visible rashes or lesions to exposed skin areas Neurologic: moves all extremities and awake Psychiatric: A+Ox3, euthymic affect Results & Data Vital Signs (Past 12 Hours) Vital Signs Temp Pulse Pulse Resp BP Pulse Ox O2 Del Method 08/16/23 08:30 75 08/16/23 07:18 36.9 C 68 18 125/75 96 Room Air 08/16/23 03:19 36.8 C 70 18 119/71 94 Room Air PG Care Time/CCT Total # of Minutes Spent Total Time Spent with Patient: Total time spent is greater than 50% in coordination of care (as documented) at patient's floor/unit and/or counseling patient: Coding Level of Care Code 09856 SUB INP/OBS CARE 2MIN Diagnoses UTI (urinary tract infection) N39.0 Diverticulitis K57.92
[2023-08-16] MEDS: SODIUM CHLORIDE 3 % 500 ML IV SCH ×3 (16:26→17:27)
[2023-08-16 16:40] LABS: BUN Creatinine Ratio 10.8 (10-20); Calcium 7.8 mg/dl (8.6-10.3); Creatinine Clr Calc Pharmacy 105.4 ml/min; Est GFR (African American) 109.8 ml/min; Est GFR (Non-African American) 94.8 ml/min; Potassium 3.8 mmol/L (3.5-5.1)
[2023-08-16 20:59] LABS: BUN Creatinine Ratio 9.5 (10-20); Calcium 7.9 mg/dl (8.6-10.3); Creatinine Clr Calc Pharmacy 105.4 ml/min; Est GFR (African American) 109.8 ml/min; Est GFR (Non-African American) 94.8 ml/min; Potassium 3.7 mmol/L (3.5-5.1)
[2023-08-16] MEDS: TAMSULOSIN HCL 0.4 MG CAP PO SCH (21:26)
[2023-08-16] MEDS: ATORVASTATIN 40 MG TAB PO SCH (21:26)
[2023-08-17] MEDS: PIPERACILLIN/TAZOBACTAM 4.5 GM in DEXTROSE 5% MINI-B 100 ML IV SCH ×2 (00:51→07:25)
[2023-08-17] MEDS: DESMOPRESSIN ACETATE 4 MCG/ML 10 ML VIAL SQ SCH ×3 (00:51→12:14)
[2023-08-17] MEDS: ONDANSETRON INJ 2 MG/ML 2 ML VIAL IV PRN (00:57)
[2023-08-17 01:25] LABS: BUN Creatinine Ratio 8.7 (10-20); Calcium 7.8 mg/dl (8.6-10.3); Creatinine Clr Calc Pharmacy 113.1 ml/min; Est GFR (African American) 113.1 ml/min; Est GFR (Non-African American) 97.5 ml/min; Potassium 3.7 mmol/L (3.5-5.1)
[2023-08-17] MEDS: MoRPHine SULFATE 4 MG/ML 1 ML CARP\\VIAL IV PRN (03:38)
[2023-08-17 04:31] LABS: Hematocrit (blood only) 30.9 % (42.0-52.0); Mean Corpuscular Hemoglobin 31.4 pg (25.0-34.0); Mean Corpuscular Hgb Conc 35.6 g/dL (32.0-36.0); Mean Corpuscular Volume 88.3 fL (80.0-100.0); Mean Platelet Volume 8.3 fL (9.4-12.4); Platelet Count 371 K/uL (130-400); RDW Coefficient of Variation 12.1 % (11.5-14.5); RDW Standard Deviation 38.7 fL (36.4-46.3); White Blood Count 6.93 K/ul (4.8-10.8)
[2023-08-17 04:46] LABS: BUN Creatinine Ratio 8.3 (10-20); Calcium 7.6 mg/dl (8.6-10.3); Creatinine Clr Calc Pharmacy 108.4 ml/min; Est GFR (African American) 111.1 ml/min; Est GFR (Non-African American) 95.9 ml/min; Potassium 3.6 mmol/L (3.5-5.1)
--- NOTE | 2023-08-17 05:44 | Surgery Progress Note ---
Date of Service August 17, 2023 Assessment & Plan (1) Diverticulitis: Plan: The patient has been admitted on the hospitalist service. Recommending to continue care as follows: Continue analgesics Continue antiemetics as needed Continue antibiotics in form of Zosyn Continue slow advancement of diet Patient would benefit from an outpatient evaluation by colorectal surgery due to concern for colovesical fistula Check a.m. labs and available (2) UTI (urinary tract infection): Admission and Anticipated Discharge Date Admission Date: August 14, 2023 Supervising Physician Co-Signing Physician Notes Patient seen and examined, agree with above. Admitted with complicated UTI secondary to suspected colovesicular fistula. Feeling much better than he did yesterday, does endorse some pneumaturia. Abdomen is soft, minimally tender to palpation in lower pelvis and left lower quadrant. Continue current management, will need outpatient follow-up with colorectal surgery for colonoscopy and possible intervention for suspected colovesicular fistula. Surgery will follow peripherally, call with questions or concerns Subjective Patient is resting comfortably at bedside. He notes that his pain has improved since admission to the hospital. He has not had any nausea or vomiting. Patient says that he is tolerating full liquids without exacerbation of abdominal pain. He does note some intermittent dysuria. Physical Exam Gastrointestinal (Abdomen): Abdomen is soft and nonrigid. There is minimal pain with palpation. There is no rebound tenderness or guarding. Results & Data Vital Signs (Past 12 Hours) Vital Signs Temp Pulse Resp BP Pulse Ox O2 Del Method 08/17/23 03:00 36.6 C 75 18 117/75 93 Room Air 08/16/23 23:00 36.4 C L 75 16 135/80 96 Room Air 08/16/23 19:00 36.6 C 76 20 117/78 96 Room Air PG Care Time/CCT Total # of Minutes Spent Total Time Spent with Patient: Total time spent is greater than 50% in coordination of care (as documented) at patient's floor/unit and/or counseling patient: Coding Level of Care Code 55235 SUB INP/OBS CARE 11/21MIN Diagnoses Diverticulitis K57.92 UTI (urinary tract infection) N39.0
--- NOTE | 2023-08-17 06:32 | Hospitalist Progress Note ---
Date of Service August 17, 2023 Assessment & Plan (1) Acute hyponatremia: (2) Diverticulitis: (3) UTI (urinary tract infection): Plan #Acute hyponatremia: - Na 111 on admission. 126 last reading. - s/p 50 cc bolus of hypertonic saline this morning - Likely secondary to Bactrim, possibly exacerbated by excess water intake - Continue 3% hypertonic saline infusion, increase rate to 50ml/hour - d/c desmopression and 3% saline. - Continue Fluid restriction 1200mL - Will space out bmp checks after the next one. #Diverticulitis: - CT significant for sigmoid diverticulitis with possible colovesicular fistula - General surgery consulted, no immediate need for surgical intervention, continue to appreciate recs - recommend outpatient follow up with colorectal surgery due to colovesical fistula - Transition antibiotic to PO Augmentin BID - Morphine as needed for pain - Zofran as needed for nausea #Colovescicular fistula: - CT with possible colovesicular fistula, air noted in bladder - Urology consulted - no immediate need for intervention, VTE ppx: Lovenox FEN: IV Hypertonic Saline, Full liquids - advance as tolerated Admission and Anticipated Discharge Date Admission Date: August 14, 2023 Supervising Physician Co-Signing Physician Notes Resident Physician Supervision Note: I independently interviewed and examined the patient and verified the irizarry history and physical, reviewed labs and image studies and agree with resident findings and care plan. Subjective Mr. Polanco is a 68yo male with history of BPH and HLP presenting with pelvic/lower abdominal discomfort. Patient evaluated at bedside, continues to endorse lower abdominal/suprapubic pain up to 7/10 in intensity and still requiring pain medication. Tolerating PO full liquids with no associated exacerbation of abdominal pain. Passing gas, no bowel movement. Denies fever or chills. Endorses mild dysuria, notes that urine is now starting to clear up. Review of Systems Review of Systems: All systems reviewed & are unremarkable except as noted in HPI & below Physical Exam Constitutional: WD/WN, vitals as above no acute distress Respiratory: normal respiratory effort, lungs clear to auscultation Cardiovascular: RRR, no murmur, no edema Gastrointestinal (Abdomen): Bowel sounds normal, RLQ and LLQ abdominal tenderness to palpation, no guarding or rigidity Skin: no rashes, warm and dry Psychiatric: A+Ox3, euthymic affect Results & Data Results & Data Vital Signs (Past 12 Hours) Vital Signs Temp Pulse Pulse Resp BP Pulse Ox O2 Del Method 08/16/23 23:10 76 08/17/23 03:00 36.6 C 75 18 117/75 93 Room Air 08/16/23 23:00 36.4 C L 75 16 135/80 96 Room Air 08/16/23 19:00 36.6 C 76 20 117/78 96 Room Air Laboratory Results Abnormal lab results 08/16/23 08/16/23 08/16/23 Range/Units 12:10 16:01 20:22 RBC (4.70-6.10) M/uL Hgb (14.0-18.0) g/dl Hct (42.0-52.0) % MPV (9.4-12.4) fL Sodium 122 L 121 L 123 L (136-145) mmol/L Chloride 90 L 92 L 93 L (98-107) mmol/L BUN (6-23) mg/dl BUN/Creatinine Ratio 9.5 L (10-20) Glucose 103 H 111 H (70-99(Fasting)) mg/dl Osmolality (280-300) mOsm/kg Calcium 7.8 L 7.8 L 7.9 L (8.6-10.3) mg/dl Urine Osmolality (500-800) mOsm/kg 08/17/23 08/17/23 08/17/23 Range/Units 00:25 00:36 03:54 RBC (4.70-6.10) M/uL Hgb (14.0-18.0) g/dl Hct (42.0-52.0) % MPV (9.4-12.4) fL Sodium 123 L (136-145) mmol/L Chloride 94 L (98-107) mmol/L BUN (6-23) mg/dl BUN/Creatinine Ratio 8.7 L (10-20) Glucose 122 H (70-99(Fasting)) mg/dl Osmolality 255 L (280-300) mOsm/kg Calcium 7.8 L (8.6-10.3) mg/dl Urine Osmolality 455 L (500-800) mOsm/kg 08/17/23 08/17/23 08/17/23 Range/Units 03:54 03:54 08:07 RBC 3.50 L (4.70-6.10) M/uL Hgb 11.0 L (14.0-18.0) g/dl Hct 30.9 L (42.0-52.0) % MPV 8.3 L (9.4-12.4) fL Sodium 122 L 125 L (136-145) mmol/L Chloride 93 L 94 L (98-107) mmol/L BUN 5 L (6-23) mg/dl BUN/Creatinine Ratio 8.3 L 6.8 L (10-20) Glucose 104 H (70-99(Fasting)) mg/dl Osmolality (280-300) mOsm/kg Calcium 7.6 L 7.7 L (8.6-10.3) mg/dl Urine Osmolality (500-800) mOsm/kg Resident Activity Tracking Resident Involvement: Resident Care Provided Care Provided: Adult [facility] Medicine
[2023-08-17] MEDS: ENOXAPARIN INJ 40 MG/0.4 ML SYR SQ SCH (07:25)
[2023-08-17] MEDS: MoRPHine SULFATE 2 MG/ML CARP IV PRN ×4 (07:26→18:36)
[2023-08-17] MEDS ORDERED: STAT IV/IM STA (07:42)
[2023-08-17] MEDS ORDERED: SODIUM CHLORIDE 3 % 50 ML IV ONE (07:45)
[2023-08-17] MEDS: SODIUM CHLORIDE 3 % 500 ML IV SCH (08:22)
[2023-08-17 08:44] LABS: BUN Creatinine Ratio 6.8 (10-20); Calcium 7.7 mg/dl (8.6-10.3); Creatinine Clr Calc Pharmacy 105.9 ml/min; Est GFR (African American) 109.8 ml/min; Est GFR (Non-African American) 94.8 ml/min; Potassium 3.7 mmol/L (3.5-5.1)
[2023-08-17 12:30] LABS: BUN Creatinine Ratio 6.8 (10-20); Calcium 7.6 mg/dl (8.6-10.3); Creatinine Clr Calc Pharmacy 105.9 ml/min; Est GFR (African American) 109.8 ml/min; Est GFR (Non-African American) 94.8 ml/min; Potassium 3.5 mmol/L (3.5-5.1)
[2023-08-17 15:02] LABS: BUN Creatinine Ratio 6.6 (10-20); Calcium 7.7 mg/dl (8.6-10.3); Creatinine Clr Calc Pharmacy 103.1 ml/min; Est GFR (African American) 108.7 ml/min; Est GFR (Non-African American) 93.7 ml/min; Potassium 3.4 mmol/L (3.5-5.1)
[2023-08-17] MEDS ORDERED: POTASSIUM CHLORIDE CRTAB 20 MEQ TABCR PO STA (15:53)
[2023-08-17] MEDS: AMOXICILLIN/CLAVULANATE 875 MG TAB PO SCH (17:00)
[2023-08-17 18:19] LABS: BUN Creatinine Ratio 6.8 (10-20); Creatinine Clr Calc Pharmacy 107.4 ml/min; Est GFR (African American) 110.5 ml/min; Est GFR (Non-African American) 95.3 ml/min; Potassium 3.6 mmol/L (3.5-5.1)
[2023-08-17] MEDS: TAMSULOSIN HCL 0.4 MG CAP PO SCH (20:14)
[2023-08-17] MEDS: ATORVASTATIN 40 MG TAB PO SCH (20:14)
[2023-08-18] MEDS: MoRPHine SULFATE 2 MG/ML CARP IV PRN ×3 (03:34→09:37)
--- NOTE | 2023-08-18 07:01 | Hospitalist Progress Note ---
Date of Service August 18, 2023 Assessment & Plan (1) Acute hyponatremia: (2) Diverticulitis: (3) UTI (urinary tract infection): Plan #Acute hyponatremia: - Na 111 on admission. 126 last reading. - s/p 50 cc bolus of hypertonic saline this morning - Likely secondary to Bactrim, possibly exacerbated by excess water intake - Continue 3% hypertonic saline infusion, increase rate to 50ml/hour - d/c desmopression and 3% saline. - Continue Fluid restriction 1200mL - Will space out bmp checks after the next one. #Diverticulitis: - CT significant for sigmoid diverticulitis with possible colovesicular fistula - General surgery consulted, no immediate need for surgical intervention, continue to appreciate recs - recommend outpatient follow up with colorectal surgery due to colovesical fistula - Transition antibiotic to PO Augmentin BID - Morphine as needed for pain - Zofran as needed for nausea #Colovescicular fistula: - CT with possible colovesicular fistula, air noted in bladder - Urology consulted - no immediate need for intervention, VTE ppx: Lovenox FEN: IV Hypertonic Saline, Full liquids - advance as tolerated Admission and Anticipated Discharge Date Admission Date: August 14, 2023 Subjective Mr. Polanco is a 68yo male with history of BPH and HLP presenting with pelvic/lower abdominal discomfort. Patient evaluated at bedside, continues to endorse lower abdominal/suprapubic pain up to 7/10 in intensity and still requiring pain medication. Tolerating PO full liquids with no associated exacerbation of abdominal pain. Passing gas, no bowel movement. Denies fever or chills. Endorses mild dysuria, notes that urine is now starting to clear up. Physical Exam Constitutional: WD/WN, vitals as above no acute distress Respiratory: normal respiratory effort, lungs clear to auscultation Cardiovascular: RRR, no murmur, no edema Skin: no rashes, warm and dry Psychiatric: A+Ox3, euthymic affect Results & Data Results & Data Vital Signs (Past 12 Hours) Vital Signs Temp Pulse Pulse Resp BP Pulse Ox O2 Del Method 08/18/23 00:05 83 08/18/23 03:00 37.5 C 87 14 124/76 94 Room Air 08/17/23 23:00 37.3 C 88 18 125/74 93 Room Air
[2023-08-18 07:17] LABS: BUN Creatinine Ratio 4.8 (10-20); Calcium 8.1 mg/dl (8.6-10.3); Est GFR (African American) 118.1 ml/min; Est GFR (Non-African American) 101.9 ml/min; Magnesium 1.9 mg/dl (1.7-2.4); Potassium 3.9 mmol/L (3.5-5.1)
[2023-08-18] MEDS: AMOXICILLIN/CLAVULANATE 875 MG TAB PO SCH ×2 (08:03→15:35)
[2023-08-18] MEDS: ENOXAPARIN INJ 40 MG/0.4 ML SYR SQ SCH (08:03)
[2023-08-18 10:24] LABS: Appearance Urine Turbid (Clear); Bilirubin Urine Negative (Negative); Blood Urine 2+ (Negative); Color Urine Yellow; Epithelial Cell Urine Auto >30 /lpf (0-5); Glucose Urine UA Negative (Negative); Ketones Urine 1+ (Negative); Leukocyte Esterase Urine 3+ (Negative); Nitrite Urine Negative (Negative); Protein Urine 1+ (Negative); Specific Gravity Urine 1.009 (1.000-1.030); Urobilinogen Urine Negative (Negative); WBC Urine Automated >30 /hpf (0-5); pH Urine 6.5 (4.5-7.5)
[2023-08-18 10:36] LABS: Bacteria Urine Automated 1+ (Negative)
[2023-08-18] MEDS ORDERED: KETOROLAC TROMETHAMINE 15 MG/ML VIAL IV PRN (12:31)
--- NOTE | 2023-08-18 15:09 | Discharge Summary ---
Date of Service August 18, 2023 Admission HPI Per Admitting Provider Mr. Polanco is a pleasant 68yo male with history of BPH and HLP presenting with pelvic discomfort. Patient reports that on 08/05/23 he developed symptoms concerning for a UTI - dysuria, increased frequency and urgency as well as pelvic discomfort. He notified his Urologist and a urine study was collected. He was started on TMP-SMX 800mg/160mg po BID on 08/09/23 for a 7 day course. He has been taking this medication as prescribed - last dose was 08/13/23 AM. He also reports that he has been trying to increase his water intake - drinks 6-8 glasses of water daily. He has had occasional chills as well as ongoing pelvic/mid-abdominal pain, episodes of nausea with vomiting and some diarrhea last night. He denies fever. Has had decreased urine output which is dark in color. He also reports that it is more difficult than usual to start his urinary stream. No additional complaints at this time. Specifically denies seizure, imbalance, confusion, visual changes. No prior history of hyponatremia or diverticulosis/diverticulitis known to the patient. Admission Exam Per Admitting Provider Physical Exam: General: patient resting comfortably, NAD, non-toxic in appearance, AA&O x 4 Skin: warm, dry, intact, no rashes or lesions HEENT: NC/AT, PERRL, EOMI, anicteric sclera, conjunctiva without injection, external ear normal to inspection and nontender, nares patent, moist mucus membranes, dentition intact, no oropharyngeal lesions, neck supple, trachea midline, no LAD, no thyromegaly, no JVD Heart: +S1/S2, regular, no m/r/g Lungs: equal air entry bilaterally, no rales/rhonchi/wheezes Abd: +BS, soft, tender in lower abdomen with no rebound/guarding or peritonitis, no masses/organomegaly/ascites Ext: warm, 2+ pulses in UE/LE bilaterally, no clubbing/cyanosis or edema Neuro: nonfocal, patient AA&O x 4, speech intact, no facial droop, moving all extremities on command with equal strength 5/5 Principal Diagnosis Hyponatremia Discharge Exam Constitutional WD/WN, vitals as above Respiratory normal respiratory effort, lungs clear to auscultation Cardiovascular RRR, no murmur, no edema Gastrointestinal (Abdomen) Bowel sounds normal, RLQ and LLQ abdominal tenderness to palpation, no guarding or rigidity Skin no rashes, warm and dry Psychiatric A+Ox3, euthymic affect Discharge Data Allergies Allergy/AdvReac Type Severity Reaction Status Date / Time No Known Drug Allergies Allergy Unknown Verified 08/14/23 01:47 Consultations 08/14/23 01:43 Consult General Surgery Routine Consult Urology Routine 08/14/23 01:46 ED Decision to Admit Stat Ordered Studies 08/14/23 00:14 CT abd pelvis wo con Stat Hospital Course (1) Acute hyponatremia: (2) Diverticulitis: (3) UTI (urinary tract infection): Plan #Acute hyponatremia: - Na 111 on admission. Due to trimethoprim and excess free water intake - S/p hypertonic saline infusion + desmopressin, discontinued 08/17. Na 129 on morning of discharge. - Fluid restriction 1200mL - Follow up with pcp and recheck labs early next week. #Diverticulitis: - CT significant for sigmoid diverticulitis with possible colovesicular fistula - General surgery consulted, no indication for emergent surgical intervention - Per surgery team, recommend outpatient follow up with colorectal surgery due to colovesical fistula - Diet advanced - tolerated well. 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, air noted in bladder - Urology consulted - no emergent need for intervention during hospital stay - Consider outpatient urology follow up for cystoscopy Total Time Total Time Spent Total Time Spent (In Minutes): see attending attestation Discharge Plan Discharge Items Patient Disposition: Home - Self-Care Reason For Visit: SEVERE HYPONATREMIA Discharge Diagnosis: diverticulitis Activity: Resume your previous activity Non-emergency contact: Primary Care Provider Call non-emergency contact if: you have any medication questions, your symptoms worsen, your pain is not controlled and you have a fever Follow-up/Referrals: Rich Rg MD [Primary Care Provider] - Diet: Regular and Low Fiber Addtl Attending Provider Instructions: You were admitted to the hospital for multiple reasons, including for low sodium, a urinary tract infection, and diverticulitis (an infection in the colon). You were treated with antibiotics to address the infections and your sodium level was slowly corrected over the course of your hospital stay. At the time of discharge, you were still on a full liquid diet. Please continue to advance your diet as tolerated. A discharge summary will be sent to your primary care physician to ensure continuity of care. Please bring this discharge summary with you to your next office appointment so that your provider can review it at that time. Medications: Your medication list has been reviewed and reconciled upon discharge to ensure accuracy and continuity of care. An updated list of all your medications is included with your hospital discharge paperwork. Please review this list closely and make note of any changes to your medications. - You were transitioned from IV antibiotics to an oral antibiotic called Augmentin (Amoxicillin-Clavulanate). Please CONTINUE to take Augmentin twice per day for 7 more days. A prescription for this medication has been sent to your pharmacy. - Please DO NOT take any more Bactrim. - You may also take over the counter medications such as Tylenol or Ibuprofen for pain control. Follow up appointments: - Make a follow up appointment with your PCP within the next week. It is very important that you follow up with them shortly after discharge from the hospital. - Please coordinate with your PCP to obtain a referral to colorectal surgery and/or urology so they may further monitor/address the colovesical fistula (a connection between the bladder and the intestine) that was noted on imaging studies. - Keep all of your follow up appointments as already scheduled. If you cannot make an appointment, notify your provider. CONTACT YOUR PRIMARY CARE PROVIDER if you experience any of the following: - Ongoing discomfort when urinating or persistent abdominal pain - Difficulty following your treatment plan - Difficulty taking any of your medications CALL 911 OR GO TO THE EMERGENCY DEPARTMENT if you experience any of the following: - Sudden, severe abdominal pain or nausea/vomiting - Severe chest pain or chest pain that radiates to your jaw or arm - Sudden, severe shortness of breath or difficulty breathing Pending Studies at Discharge: No Stand-Alone Forms: My [employer], Smoking Cessation Medications and DC Order Prescriptions: New amoxicillin-pot clavulanate 875-125 mg Tablet 1 tab PO BIDM 7 Days Qty: 14 0RF Continued sildenafil (pulm.hypertension) 20 mg tablet 20 mg PO ONCE MDD 100 mg PRN (Reason: sexual activity) Qty: 30 5RF Rx Instructions: Take 1-5 tablets prn prior to sexual activity. Do not exceed 100mg in 24 hours. atorvastatin 40 mg tablet 80 mg PO HS silodosin [Rapaflo] 8 mg capsule 8 mg PO QPM Rx Instructions: must administer with a meal/food Discontinued sulfamethoxazole-trimethoprim [Bactrim DS] 800-160 mg tablet 1 tab PO BID 3 Days Qty: 6 0RF Discharge Orders: Discharge Order (Routine); Ordered 08/18/23 Ordered By: Nimesh Granados/Other Patient Handouts: Hyponatremia Dc Admission Data Admit Date/Time: 08/14/23 02:21 Attending Provider: Meli Rey Admit Provider: Lexi Allen Primary Care Provider: Rich Rg Other Providers: Gokul Fontana ; Shelton Robles ; Lexi Allen Other Interventions: Discharge Summary Assessment (RN) Last Done: 08/18/23 15:23 Supervising Physician Co-Signing Physician Notes Resident Physician Supervision Note: I independently interviewed and examined the patient and verified the irizarry history and physical, reviewed labs and image studies and agree with resident findings and care plan. Resident Activity Tracking Resident Involvement: Resident Care Provided Care Provided: Adult Hospital Medicine
[2023-08-18] MEDS ORDERED: [UNRECOGNIZED DRUG - REMARK] ONE (16:14)
== END 2023-08-18 16:21 | disposition home or self-care (01) | DRG 641 ==
LOC: ED 21:47 → SUATTDRO 08-14 02:21 → EDINP 08-14 02:21 → 2S 08-14 22:35